=== PATIENT | male | born 1945 | race Caucasian/White ===

== ENCOUNTER 2023-02-14 15:42 | Inpatient (IN) ==
[2023-02-14] MEDS ORDERED: NovoLIN R (or HumuLIN R) SC PRN (18:19)
[2023-02-14] MEDS ORDERED: DILAUDID INJ IVP PRN (18:19)
[2023-02-14 19:07] LABS: BASOPHILS % (AUTO) 0.2 % (0.2-1.0); EOSINOPHILS % (AUTO) 0.4 % (0.9-2.9); HEMATOCRIT 37.1 % (42.0-54.0); HEMOGLOBIN 12.6 g/dL (13.5-18.0); LYMPHOCYTES # (AUTO) 1.6 X10^3/uL (1.3-2.9); LYMPHOCYTES % (AUTO) 15.1 % (21.0-51.0); MEAN CORPUSCULAR HGB CONC 33.9 g/dL (33.0-35.0); MEAN CORPUSCULAR VOLUME 82.6 fL (80.0-100.0); MEAN PLATELET VOLUME 9.1 fL (7.4-11.0); MONOCYTES # (AUTO) 0.6 x10^3/uL (0.3-0.8); MONOCYTES % (AUTO) 5.2 % (0.0-13.0); NEUTROPHILS # (AUTO) 8.4 x10^3/uL (2.2-4.8); NEUTROPHILS % (AUTO) 79.1 % (42.0-75.0); RED CELL DISTRIBUTION WIDTH 14.3 % (11.6-16.5); WHITE BLOOD COUNT 10.7 X10^3/uL (3.6-10.0)
[2023-02-14 19:10] LABS: INR 1.09 (0.8-1.3)
[2023-02-14 19:15] LABS: ALANINE AMINOTRANSFERASE 24 Units/L (12-78); ALBUMIN 3.6 g/dL (3.4-5.0); ALKALINE PHOSPHATASE 69 Units/L (46-116); ASPARTATE AMINO TRANSFERASE 13 Units/L (15-37); BLOOD UREA NITROGEN 28 mg/dL (7-18); CALCIUM 8.9 mg/dL (8.5-10.1); CARBON DIOXIDE 27.3 mmol/L (21-32); CHLORIDE 99 mmol/L (98-107); COR NA(FOR HYPERGLY) 142 mmol/L (136-145); CREATININE 1.38 mg/dL (0.70-1.30); SODIUM 135 mmol/L (136-145); eGFR NON BLACK RACES 53 (>60)
[2023-02-14 19:44] VITALS: BMI 27.1
[2023-02-14] MEDS ORDERED: LR 1,000 ML IV 1,000 ML IV ONE (20:50)
[2023-02-14] MEDS: LR 1,000 ML IV 1,000 ML IV SCH (20:59)
[2023-02-14] MEDS ORDERED: NovoLIN R (or HumuLIN R) ONE (21:35)
--- NOTE | 2023-02-14 23:22 | DR.UPDATE ---
H&P UPDATE Review Yes Any changes to H&P?: Yes
[2023-02-15] MEDS ORDERED: MOBIC TAB 15 MG PO ONE (08:08)
[2023-02-15] MEDS ORDERED: FLEXERIL TAB 10 MG ONE (08:08)
[2023-02-15] MEDS ORDERED: ASPIRIN 81 MG CHEWTAB ONE (08:08)
[2023-02-15] MEDS ORDERED: LOVENOX INJ 40 MG SYR SC ONE (08:08)
[2023-02-15] MEDS: FLEXERIL TAB 10 MG PO SCH (09:03)
[2023-02-15] MEDS: MOBIC TAB 15 MG PO SCH (09:03)
[2023-02-15] MEDS: ASPIRIN EC 81 MG PO SCH (09:04)
[2023-02-15] MEDS: LOVENOX INJ 40 MG SYR SC SCH (09:04)
[2023-02-15] MEDS: LR 1,000 ML IV 1,000 ML IV SCH ×2 (10:55→20:00)
--- NOTE | 2023-02-15 17:44 | NOTE.SOAP ---
Soap Note Note for Day of Date of Exam: 02/15/23 Subjective Data Subjective Data: Admitted with severe LE ischemia bilaterally, worse on left . HAd CTA today Objective Data Temperature: 97.6 F Pulse Rate: 89 Respiratory Rate: 20 Blood Pressure: 143/64 O2 Sat by Pulse Oximetry: 97 Objective Data: CTA of aorta with runoff shows complete total occlusion of the left distal SFA/proximal popliteal artery with 2 vessel runoff via the left AT AND PT arteries . Right SFA with short segment popliteal severe stenosis with 2 vessel runoff via right AT AND PT arteries Assessment Assessment: Severe LE ischemia, worse on left Plan Plan: Aortogram, arteriogram left leg with atherectomy and drug coated balloon angioplasty of the left SFA/Popliteal complete occlusion. Risks and benefits explained to the patient including bleeding, infection, limb loss and . She agrees to proceed. Right leg to be done at another time sequentially.
[2023-02-16 05:52] LABS: BLOOD UREA NITROGEN 20 mg/dL (7-18); CALCIUM 8.8 mg/dL (8.5-10.1); CARBON DIOXIDE 25.2 mmol/L (21-32); CHLORIDE 103 mmol/L (98-107); COR NA(FOR HYPERGLY) 140 mmol/L (136-145); CREATININE 1.05 mg/dL (0.70-1.30); SODIUM 138 mmol/L (136-145); eGFR NON BLACK RACES > 60 (>60)
--- NOTE | 2023-02-16 07:09 | RAD ---
HISTORYPreopSTUDYPortable AP chestCOMPARISONNoneFINDINGSHeart size within normal limits with clear lungs and pleural spaces.IMPRESSIONNo evidence for acute or significant chronic chest disease.Electronically signed by: YESI CAMERON (Feb 16, 2023 07:08:04)
[2023-02-16] MEDS: FLEXERIL TAB 10 MG PO SCH (08:13)
[2023-02-16] MEDS: LOVENOX INJ 40 MG SYR SC SCH (08:13)
[2023-02-16] MEDS: ASPIRIN EC 81 MG PO SCH (08:13)
[2023-02-16] MEDS: MOBIC TAB 15 MG PO SCH (08:14)
--- NOTE | 2023-02-16 08:19 | CT ---
HISTORYBILATERAL LOWER EXT ISCHEMIA.STUDYCTA AORTA WITH RUNOFFCOMPARISONNoneTECHNIQUEMultiple CT axial images of the abdomen, pelvis, and lower extremity runoff were obtained before and after using IV contrast. 3D reconstructions utilizing axial MIPS imaging was performed and reviewed. Dose reduction techniques including Automated Exposure Control (AEC) and adjustment of mA and kV were utilized.Stenoses are measured using NASCET criteria.FINDINGSWithout contrast:Atherosclerotic calcification is present in the coronary arteries. Additional calcifications are seen in aorta.Surgical clips are present in the gallbladder fossa from a cholecystectomy.With contrast: Although there are atherosclerotic changes in the aorta, there is no aortic aneurysm, dissection, or significant stenosis. All 3 mesenteric vessels are patent. One artery to the right kidney and 2 to the left.Mild stenosis is noted in the proximal right and left common iliac artery. Otherwise common and external iliac arteries are widely patent. Both internal iliac arteries are patent.Right lower extremity: Mild diffuse disease is noted. There is mild stenosis in the mid segment superficial femoral artery. Severe focal concentric stenosis noted in the vessel at the adductor segment none transitioning into the popliteal artery. Otherwise popliteal artery is patent. Moderate stenosis noted in the popliteal artery proximal to the trifurcation vessels. Anterior tibial artery is either occluded or becomes extremely tiny. Two vessel runoff exists with the dominant vessel being peroneal artery. Posterior tibial artery also extends into the foot.Left lower extremity: Mild diffuse disease is seen. But then there is occlusion of the popliteal artery just distal to the adductor canal. Collaterals reconstitute the popliteal artery above the knee joint surface. I estimate the occluded segment to measure about 5 cm in length. Moderate diffuse disease seen in the popliteal artery. And similar to the right side, the anterior tibial artery is either occluded or becomes extremely tiny. Two vessel runoff includes the peroneal artery and posterior tibial artery. The dominant vessel is the posterior tibial artery.Body: There is no biliary obstruction. No hydronephrosis. No bowel obstruction. There are diverticula in the colon. But there is no wall thickening or pericolonic edema to suggest acute diverticulitis. There is atrophy of the right abdominal wall musculature resulting in laxity and bulging of the lateral abdominal wall. And I believe there is superior right-sided lumbar hernia containing right colon. Compression fractures are present at T10 and L4 and L5. These could be acute or old.IMPRESSION1. (5 cm) short-segment left proximal popliteal artery occlusion2. Severe focal stenosis right SFA at the adductor segment3. Two vessel runoff to each foot4. Right lumbar hernia containing colon5. Thoracic and lumbar spine compression fractures, age indeterminateElectronically signed by: Mehran Bowers (Feb 16, 2023 08:17:44)
[2023-02-16] MEDS ORDERED: DIPRIVAN VIAL 20 ML ONE (08:39)
[2023-02-16] MEDS ORDERED: VERSED ONE (08:41)
[2023-02-16] MEDS ORDERED: FENTANYL VIAL INJ 100 mcg ONE (08:43)
[2023-02-16] MEDS ORDERED: ROBINUL ONE (08:46)
[2023-02-16] MEDS ORDERED: PEPCID 20 MG VIAL ONE (08:46)
[2023-02-16] MEDS ORDERED: ZOFRAN INJ 4 MG VIAL ONE (08:46)
[2023-02-16] MEDS ORDERED: NS 1,000 ML IV 1,000 ML ONE (08:58)
[2023-02-16] MEDS ORDERED: DUONEB 0.5 MG/3 MG (3 mL) NEB ONE ×2 (09:15→09:20)
[2023-02-16] MEDS ORDERED: CLEOCIN 600 MG IV PREMIX 600 MG/50 ML BAG IV ONE (09:26)
[2023-02-16] MEDS ORDERED: MARCAINE/EPINEPHRINE ONE (10:10)
[2023-02-16] MEDS ORDERED: HEPARIN SODIUM IN D5W 75,000 UNITS/1,500 ML BAG ONE (10:11)
--- NOTE | 2023-02-16 10:31 | EKG ---
Test Reason : BIG ROOM PRE-OP Blood Pressure : */* mmHG Vent. Rate : 89 BPM Atrial Rate : 89 BPM P-R Int : 152 ms QRS Dur : 94 ms QT Int : 392 ms P-R-T Axes : 75 22 88 degrees QTc Int : 476 ms Normal sinus rhythm Normal ECG No previous ECGs available Confirmed by Samy Mcmanus ([id number]) on 02/18/2023 8:20:41 AM Referred By: Confirmed By: Samy Mcmanus
[2023-02-16] MEDS ORDERED: KETAMINE HCL ONE (10:36)
[2023-02-16] MEDS ORDERED: XYLOCAINE 2 % (PLAIN) ONE (10:36)
[2023-02-16] MEDS ORDERED: PRECEDEX INJ VIAL IVP ONE (10:36)
[2023-02-16] MEDS ORDERED: HEPARIN SODIUM INJ 5000 UNITS ONE (10:41)
[2023-02-16] MEDS ORDERED: OFIRMEV IV 1000 MG VIAL 1,000 MG/100 ML VIAL IV ONE (10:50)
[2023-02-16] MEDS ORDERED: NEO-SYNEPHRINE INJ ONE (10:53)
[2023-02-16] MEDS ORDERED: REGLAN INJ 10 MG VIAL ONE (10:59)
[2023-02-16] MEDS ORDERED: DECADRON INJ ONE (10:59)
[2023-02-16] MEDS ORDERED: NS 500 ML IV 500 ML IV ONE (11:19)
[2023-02-16] MEDS ORDERED: PROTAMINE SULFATE 50 MG VIAL ONE (11:48)
--- NOTE | 2023-02-16 11:56 | OR.IMMED ---
IMMEDIATE POST-OP NOTE Immediate Post-Op Note Pre-Op Diagnosis: Critical limb ischemia left leg, rest pain Post-Op Diagnosis: same Procedure: diagnostic aortogram , diagnostic arteriogram left lower extremity , atherectomy drug-coated balloon angioplasty of the left superficial femoral artery and left popliteal artery Description of Procedure: see operative summary Surgeon/Handyman: Liset Findings: complete total occlusion of the distal left superficial femoral artery, stenosis left popliteal artery, 2 vessel runoff via the posterior tibial and peroneal arteries, occluded left anterior tibial artery Estimated Blood Loss: < 50cc Complications: none Post Hospital Plans and Medications: return to the floor. If toleratesa diet will discharged home later today Final Diagnosis: see above
--- NOTE | 2023-02-16 15:27 | W.DIS.FURT ---
Summary of Discharge Discharge Summary of Date Date of Exam: 02/16/23 Admission Date Date of Admission: 02/14/23 Admission Diagnosis Hospital Course: 77 year old female who was seen in the office on February 09 2023 for severe rest pain of both legs and bilateral dependent rubor, worse on the left. Her left 3rd toe distal phalanx has early dry gangrene . She was admitted and underwent CT angiogram the following day showing a 5 cm area of complete total occlusion of the distal left superficial femoral artery and reconstitution of the popliteal artery and 2 vessel run off by the peroneal artery and posterior tibila artery. The right side shows a very short segment severe stenosis, near total occlusion of the right superficial femoral artery. Patient underwent atherectomy and drug-coated balloon angioplasty of the right superficial femoral and popliteal arteries the next day 02/16/2023 and has done well. She will be discharged home on her usual mediations plus Aspirin, 81 mg po daily and Xarelto 2.5 mg po BID. She will follow up in one week and at that time we will schedule for the right leg intervention. Vital Signs: Vital Signs (72 hours) 02/15/23 17:44 02/14/23 18:05 02/14/23 17:45 Temperature 97.6 F 97.9 F Pulse Rate 89 Pulse Rate [Right Radial] 97 H Respiratory Rate 20 18 Blood Pressure 143/64 Blood Pressure [Left Arm] Blood Pressure [Right Arm] 175/78 O2 Sat by Pulse Oximetry 97 98 Oxygen Delivery Method Room Air Room Air 02/14/23 19:00 02/14/23 20:00 02/15/23 00:00 Temperature 98.1 F 98.2 F Pulse Rate Pulse Rate [Right Radial] 91 H 93 H Respiratory Rate 20 20 Blood Pressure Blood Pressure [Left Arm] Blood Pressure [Right Arm] 128/70 160/75 O2 Sat by Pulse Oximetry 98 99 Oxygen Delivery Method Room Air Room Air Room Air 02/15/23 04:00 02/15/23 07:00 02/15/23 08:00 Temperature 98.7 F 98.8 F Pulse Rate Pulse Rate [Right Radial] 88 86 Respiratory Rate 20 20 Blood Pressure Blood Pressure [Left Arm] Blood Pressure [Right Arm] 164/72 173/77 O2 Sat by Pulse Oximetry 97 96 Oxygen Delivery Method Room Air Room Air Room Air 02/15/23 12:00 02/15/23 16:00 02/15/23 19:00 Temperature 97.7 F 97.6 F Pulse Rate Pulse Rate [Right Radial] 89 89 Respiratory Rate 20 20 Blood Pressure Blood Pressure [Left Arm] Blood Pressure [Right Arm] 162/70 143/64 O2 Sat by Pulse Oximetry 98 97 Oxygen Delivery Method Room Air Room Air Room Air 02/15/23 20:00 02/16/23 00:00 02/16/23 04:00 Temperature 98.4 F 98 F 96.9 F L Pulse Rate Pulse Rate [Right Radial] 84 85 79 Respiratory Rate 20 20 20 Blood Pressure Blood Pressure [Left Arm] 169/72 154/69 176/79 Blood Pressure [Right Arm] O2 Sat by Pulse Oximetry 99 99 96 Oxygen Delivery Method Room Air Room Air Room Air 02/16/23 05:40 02/16/23 06:10 02/16/23 07:36 Temperature 98.6 F Pulse Rate Pulse Rate [Right Radial] 83 Respiratory Rate 20 20 18 Blood Pressure Blood Pressure [Left Arm] 142/65 Blood Pressure [Right Arm] O2 Sat by Pulse Oximetry 95 Oxygen Delivery Method Room Air 02/16/23 07:00 02/16/23 08:55 02/16/23 12:10 Temperature 97.3 F L 97.2 F L Pulse Rate 82 Pulse Rate [Right Radial] 82 Respiratory Rate 18 18 Blood Pressure 192/77 Blood Pressure [Left Arm] 126/60 Blood Pressure [Right Arm] O2 Sat by Pulse Oximetry 98 99 Oxygen Delivery Method Room Air Room Air Room Air 02/16/23 12:25 02/16/23 12:40 02/16/23 12:55 Temperature 97.9 F 97.9 F 97.9 F Pulse Rate Pulse Rate [Right Radial] 95 H 86 87 Respiratory Rate 18 18 18 Blood Pressure Blood Pressure [Left Arm] 97/47 100/54 99/52 Blood Pressure [Right Arm] O2 Sat by Pulse Oximetry 100 100 100 Oxygen Delivery Method Room Air Room Air Room Air 02/16/23 13:10 02/16/23 14:48 Temperature 97.9 F 97.7 F Pulse Rate Pulse Rate [Right Radial] 86 88 Respiratory Rate 18 20 Blood Pressure Blood Pressure [Left Arm] 98/53 136/63 Blood Pressure [Right Arm] O2 Sat by Pulse Oximetry 100 93 L Oxygen Delivery Method Room Air Room Air Labs: Laboratory Last Values WBC 10.7 X10^3/uL (3.6-10.0) H 02/14/23 18:43 RBC 4.50 X10^6/uL (4.7-6.0) L 02/14/23 18:43 Hgb 12.6 g/dL (13.5-18.0) L 02/14/23 18:43 Hct 37.1 % (42.0-54.0) L 02/14/23 18:43 MCV 82.6 fL (80.0-100.0) 02/14/23 18:43 MCH 28.0 pg (27.0-34.0) 02/14/23 18:43 MCHC 33.9 g/dL (33.0-35.0) 02/14/23 18:43 RDW 14.3 % (11.6-16.5) 02/14/23 18:43 Plt Count 232 X10^3/uL (150.0-450.0) 02/14/23 18:43 MPV 9.1 fL (7.4-11.0) 02/14/23 18:43 Neut % (Auto) 79.1 % (42.0-75.0) H 02/14/23 18:43 Lymph % (Auto) 15.1 % (21.0-51.0) L 02/14/23 18:43 [place] % (Auto) 5.2 % (0.0-13.0) 02/14/23 18:43 Eos % (Auto) 0.4 % (0.9-2.9) L 02/14/23 18:43 Baso % (Auto) 0.2 % (0.2-1.0) 02/14/23 18:43 Neut # (Auto) 8.4 x10^3/uL (2.2-4.8) H 02/14/23 18:43 Lymph # (Auto) 1.6 X10^3/uL (1.3-2.9) 02/14/23 18:43 [place] # (Auto) 0.6 x10^3/uL (0.3-0.8) 02/14/23 18:43 Eos # (Auto) 0.0 x10^3/uL (0.0-0.2) 02/14/23 18:43 Baso # (Auto) 0.0 X10^3/uL (0.0-0.1) 02/14/23 18:43 Absolute Nucleated RBC 0.0 /100WBC 02/14/23 18:43 PT 13.7 SECONDS (11.8-14.3) 02/14/23 18:43 INR Target Range - 02/14/23 18:43 INR 1.09 (0.8-1.3) 02/14/23 18:43 Sodium 138 mmol/L (136-145) 02/16/23 05:20 Corrected Sodium 140 mmol/L (136-145) 02/16/23 05:20 Potassium 4.1 mmol/L (3.5-5.1) 02/16/23 05:20 Chloride 103 mmol/L (98-107) 02/16/23 05:20 Carbon Dioxide 25.2 mmol/L (21-32) 02/16/23 05:20 BUN 20 mg/dL (7-18) H 02/16/23 05:20 Creatinine 1.05 mg/dL (0.70-1.30) 02/16/23 05:20 Est GFR (MDRD) Af Amer > 60 (>60) 02/16/23 05:20 Est GFR (MDRD) Non-Af > 60 (>60) 02/16/23 05:20 Glucose 184 mg/dL (65-99) H 02/16/23 05:20 POC Glucose (mg/dL) 179 mg/dL (65-99) H 02/16/23 05:31 Calcium 8.8 mg/dL (8.5-10.1) 02/16/23 05:20 Corrected Calcium TNP 02/14/23 18:43 Total Bilirubin 0.30 mg/dL (0.2-1.0) 02/14/23 18:43 AST 13 Units/L (15-37) L 02/14/23 18:43 ALT 24 Units/L (12-78) 02/14/23 18:43 Alkaline Phosphatase 69 Units/L (46-116) 02/14/23 18:43 Total Protein 7.0 g/dL (6.4-8.2) 02/14/23 18:43 Albumin 3.6 g/dL (3.4-5.0) 02/14/23 18:43 Globulin 3.4 g/dL (2.5-4.5) 02/14/23 18:43 Albumin/Globulin Ratio 1.1 Ratio (1.1-2.1) 02/14/23 18:43 Reason For Visit: BILATERAL LOWER EXT ISCHEMIA Discharge Date Discharge Date: 02/16/23 Discharge Diagnosis All Active Problems (Updated 02/14/23 @ 18:25 by Blake Hutchins) Atherosclerosis of [place] arteries of extremities with rest pain, left leg (Acute) Atherosclerosis of [place] arteries of extremities with rest pain, right leg (Acute) Plan of Treatment: Continue with present treatment and follow up plan. Pt is to keep follow up appointment as instructed and take medications as ordered. Discharge Medications Discharge Medications: metronidazole [From Flagyl] Allergy (Verified 02/14/23 20:34) Penicillins Allergy (Verified 02/14/23 20:34) strawberry Adverse Reaction (Verified 02/14/23 20:34) CONTINUE taking the following medications aspirin 81 mg chewable tablet 81 mg PO DAILY 02/14/23 [History] atorvastatin 20 mg tablet 1 tab PO QDAY 02/14/23 [History] ergocalciferol (vitamin D2) 1,250 mcg (50,000 unit) capsule 1 cap PO DAILY 02/14/23 [History] insulin aspart U-100 100 unit/mL (3 mL) subcutaneous pen 1 ea subcut PRN PRN 02/14/23 [History] insulin detemir U-100 100 unit/mL (3 mL) subcutaneous pen (Levemir FlexPen) 1 ea subcut PRN PRN 02/14/23 [History] levothyroxine 112 mcg tablet 1 tab PO QDAY 02/14/23 [History] lisinopril 10 mg tablet 1 tab PO QDAY 02/14/23 [History] New Prescriptions rivaroxaban 2.5 mg tablet (Xarelto) 2.5 mg PO BID #180 tabs 02/16/23 [Rx] Discharge Disposition Assessment: see hospital course above f/u 1 week Discharge Plan Discharge Plan Hospital Course: 77 year old female who was seen in the office on February 09 2023 for severe rest pain of both legs and bilateral dependent rubor, worse on the left. Her left 3rd toe distal phalanx has early dry gangrene . She was admitted and underwent CT angiogram the following day showing a 5 cm area of complete total occlusion of the distal left superficial femoral artery and reconstitution of the popliteal artery and 2 vessel run off by the peroneal artery and posterior tibila artery. The right side shows a very short segment severe stenosis, near total occlusion of the right superficial femoral artery. Patient underwent atherectomy and drug-coated balloon angioplasty of the right superficial femoral and popliteal arteries the next day 02/16/2023 and has done well. She will be discharged home on her usual mediations plus Aspirin, 81 mg po daily and Xarelto 2.5 mg po BID. She will follow up in one week and at that time we will schedule for the right leg intervention. Patient Disposition: HOME, SELF-CARE Condition: Stable Health Concerns: Post Hospitalization: new medications and changes needed to prevent readmission or further decline. Pt educated and given instructions on all concerns. Plan of Treatment: Continue with present treatment and follow up plan. Pt is to keep follow up appointment as instructed and take medications as ordered. Assessment: see hospital course above f/u 1 week Prescription drug monitoring program results: PDMP reviewed and no concerns identified Prescriptions: New Xarelto 2.5 mg tablet 2.5 mg PO BID Qty: 180 4RF Continued atorvastatin 20 mg tablet 1 tab PO QDAY lisinopril 10 mg tablet 1 tab PO QDAY ergocalciferol (vitamin D2) 1,250 mcg (50,000 unit) capsule 1 cap PO DAILY levothyroxine 112 mcg tablet 1 tab PO QDAY insulin aspart U-100 100 unit/mL (3 mL) insulin pen 1 ea SUBCUT PRN PRN Label Comments: [NO ORIGINAL SIG] Levemir FlexPen 100 unit/mL (3 mL) insulin pen 1 ea SUBCUT PRN PRN Label Comments: [NO ORIGINAL SIG] aspirin 81 mg Tablet,Chewable 81 mg PO DAILY Follow ups/Referrals Follow ups/Referrals: Janis Ty [Primary Care Provider] - 1 WEEK Instructions Stand Alone Forms: Excuse From Work or School
[2023-02-16 16:07] VITALS: BP 136/59
--- NOTE | 2023-02-20 14:57 | DR.OPNOTE ---
OP NOTE Pre-Op Diagnosis: critical ischemia left leg with rest pain Post-Op Diagnosis: same Procedure Date Date Of Procedure: 02/16/23 Procedure: PROCEDURE: Diagnostic aortogram , diagnostic arteriogram left lower extremity, atherectomy and drug coated balloon angioplasty left superficial femoral artery distally and drug coated balloon angioplasty the left popliteal artery NARRATIVE: The patient was taken to the operative suite and placed in the supine position.She was given intravenous sedation which was supervised by myself. Right groin and entire left leg were prepped and draped in sterile fashion. Time out for the procedure obtained. Ultrasound used to identify the right common femoral artery and the skin overlying it infiltrated with 0.5% Marcaine . Ultrasound used to guide puncture of the right common femoral artery artery and a 0.012 inch guide wire placed. Incision made over the guide wire at the skin edge with a number 11 knife blade and a micro sheath place over the guide wire into the right common femoral artery . . The small guidewire exchanged for a 0.035 inch Advantage glidewire and the micro sheath exchanged for a 5 Fr vascular sheath . An Omni catheter was placed over the guide wire into the aorta and diagnostic aortogram carried out using the power injector. The aorta and iliac arteries were normal. The Omni catheter used to steer the guide wire down the left iliac artery to the left distal external iliac artery. Omni catheter exchanged for a [place] catheter and sequential arteriograms carried out of the left leg showing a completely occluded distal left superficial femoral artery with reconstitution of the distal popliteal artery and two vessel run off via the left posterior tibial and peroneal arteries. The [place] catheter and the 0.035 inch wire used to traverse the complete occlusion to the [place] left popliteal artery . This was confirmed with arteriogram . The 5 Fr sheath in the right groin exchanged for a 7 Fr destination sheath which was parked in the distal external iliac artery on the left side. Patient had been given 5000 units of intravenous heparin in the beginning of the case. [place] catheter placed over the 0.035 inch wire inch and it exchanged for a 0.014 inch wire as selective catherization into the left peroneal artery. The [place] atherectomy device was loaded over the wire and atherectomy carried out with with two passes through the complete total occlusion of the superficial femoral artery. Atherectomy device removed and the distal superficial femoral artery dilated for 3 minutes with a 5 mm x 200 mm Kouts Clean TeQ [place] drug coated balloon. Excellent results noted with question of stenosis of the mid and distal left popliteal artery . Left popliteal artery then balloon dilated with a 4 mm x 60 mm mm [place] drug coated balloon with excellent result. All devices and wires removed . The destination sheath pulled back into the aorta and the 0.035 inch wire placed. The destination sheath exchange for an Angio seal device which was used to close the puncture of the right common femoral artery . Dressing applied and the patient taken back to her room on the floor. She tolerated this well. Type of Anesthesia: Local (0.5% Marcaine ) Anesthesia Comment: plus MAC Findings: complete total occlusion left distal superficial femoral artery, sten osis left popliteal artery, run off left leg via left posterior tibial and left peroneal arteries . Type of Fluids Used:: Lactated Ringers Total Amount of Fluid Infused:: 500 cc Urine output: 50 cc EBL: 50 cc Complications:: one Needle/Sponge Count:: correct Disposition/Condition: Pt. tolerated procedure without difficulty. Extubated in the OR and taken to PACU in stable condition.
== END 2023-02-16 16:50 | disposition home or self-care (01) | DRG 272 ==
LOC: EDSEX 17:18 → MED/SURG 17:18
PROVIDERS: ADMIT Surgery; ATTEND Surgery
DX: Z66 Do not resuscitate; I70.223 Atherosclerosis of native arteries of extremities with rest pain, bilateral legs; E78.2 Mixed hyperlipidemia; E11.65 Type 2 diabetes mellitus with hyperglycemia; I10 Essential (primary) hypertension

== ENCOUNTER 2023-02-27 06:18 | Inpatient (IN) ==
[2023-02-27] MEDS ORDERED: ANCEF VIAL 1 GRAM ONE (06:54)
[2023-02-27] MEDS ORDERED: NS 100 ML IV 100 ML ONE (06:54)
[2023-02-27] MEDS ORDERED: NS 1,000 ML IV 1,000 ML ONE ×3 (06:54→14:14)
[2023-02-27] MEDS ORDERED: HEPARIN SODIUM IN D5W 75,000 UNITS/1,500 ML BAG ONE ×2 (07:11→14:05)
[2023-02-27] MEDS ORDERED: MARCAINE 0.25% INJ ONE ×2 (07:11→14:06)
[2023-02-27] MEDS ORDERED: CLEOCIN 600 MG IV PREMIX 600 MG/50 ML BAG IV ONE (07:12)
[2023-02-27] MEDS ORDERED: KETAMINE HCL ONE (07:35)
[2023-02-27] MEDS ORDERED: DIPRIVAN VIAL 40 ML ONE (07:42)
[2023-02-27] MEDS ORDERED: FENTANYL VIAL INJ 100 mcg ONE (07:42)
[2023-02-27] MEDS ORDERED: VERSED ONE (07:42)
[2023-02-27] MEDS ORDERED: HEPARIN SODIUM INJ 5000 UNITS ONE ×2 (08:27→15:38)
[2023-02-27] MEDS ORDERED: NS 500 ML IV 500 ML IV ONE (08:55)
[2023-02-27] MEDS ORDERED: TORADOL 30 MG VIAL ONE (09:11)
[2023-02-27] MEDS ORDERED: NEO-SYNEPHRINE INJ ONE (09:23)
[2023-02-27] MEDS ORDERED: HEPARIN SODIUM IN D5W 25,000 UNITS/500 ML BAG ONE (09:34)
[2023-02-27] MEDS ORDERED: ACTIVASE CATHFLO ONE (09:35)
[2023-02-27] MEDS ORDERED: NITROGLYCERIN IV PREMIX 50 MG 50 MG/250 ML BAG ONE (09:51)
[2023-02-27] MEDS ORDERED: ACTIVASE CATHFLO 12 MG in NS 250 ML IV 228 ML IV ONE (10:00)
[2023-02-27] MEDS ORDERED: DIPRIVAN VIAL 20 ML ONE ×2 (10:02→13:57)
[2023-02-27] MEDS ORDERED: DILAUDID INJ ONE ×3 (10:32→12:42)
[2023-02-27] MEDS ORDERED: BARHEMSYS INJ IVP PRN (10:34)
[2023-02-27] MEDS ORDERED: ZOFRAN INJ 4 MG VIAL IVP PRN ×2 (10:34→17:09)
[2023-02-27] MEDS ORDERED: REGLAN INJ 10 MG VIAL IVP PRN (10:34)
[2023-02-27] MEDS ORDERED: BENADRYL INJ 50 MG VIAL IVP PRN (10:34)
[2023-02-27] MEDS: DILAUDID INJ IVP PRN ×5 (10:49→17:47)
--- NOTE | 2023-02-27 10:55 | OR.IMMED ---
IMMEDIATE POST-OP NOTE Immediate Post-Op Note Pre-Op Diagnosis: Critical ischemia right leg . Post-Op Diagnosis: same Description of Procedure: diagnostic aortogram, diagnostic arteriogram right leg, atherectomy and balloon angiioplasty right posterior tibial artery, atherectomy and drug coated balloon angioplasty right superficial femoral artery, placement of EKOS catheter down the right posterior tibial artery for 4 hour infusion of TPA and then will return to OR later today for repeat arteriogram and possible more peripheral based intervention. Surgeon/Beam Press Operator: Liset Findings: Right SFA near total occlusion, obstruction and complete occlusion right tibial -peroneal trunk, entire right posterior tibial artery, and occlusion proximal right peroneal artery. Possible thrombus as none of the distal occlusions noted on the CTA except for the completely occluded right anterior tibial artery. Complications: none Progress Notes: to PACU for 4 hrs TPA infusion right leg and at that time return to OR for repeat arteriogram and possibly further intervention.
[2023-02-27] MEDS ORDERED: BARHEMSYS INJ ONE (12:21)
[2023-02-27] MEDS ORDERED: DILAUDID INJ IVP ONE (12:45)
[2023-02-27] MEDS ORDERED: NORMODYNE INJ 20 MG VIAL ONE (15:14)
[2023-02-27] MEDS ORDERED: HEPARIN SODIUM IN D5W 25,000 UNITS/500 ML BAG IV PRN (17:09)
--- NOTE | 2023-02-27 17:20 | OR.IMMED ---
IMMEDIATE POST-OP NOTE Immediate Post-Op Note Pre-Op Diagnosis: Critical ischemia right leg Post-Op Diagnosis: same Procedure: arteriogram right leg, angioplasty right posterior tibial artery, attempt to cross takeoff of right peroneal artery not successful Surgeon/Information Systems Manager: Liset Findings: Question of extravasation of proximal posterior tibial artery on right, extravasation of proximal right peroneal after attempt to pass wire across this occlusion Estimated Blood Loss: minimal Complications: as above Progress Notes: Leave sheath in place, heparin drip. Will plan return to OR tomorrow with repeat arteriogram and if still extravasation will plan for possible covered stent placement.
[2023-02-27] MEDS: ATIVAN INJ 2 MG VIAL IVP PRN (17:48)
[2023-02-27] MEDS: LR 1,000 ML IV 1,000 ML IV SCH ×2 (18:34→23:32)
[2023-02-28] MEDS: DILAUDID INJ IVP PRN ×5 (00:49→18:31)
[2023-02-28 02:21] LABS: BASOPHILS % (AUTO) 0.3 % (0.2-1.0); EOSINOPHILS # (AUTO) 0.1 x10^3/uL (0.0-0.2); EOSINOPHILS % (AUTO) 0.6 % (0.9-2.9); HEMATOCRIT 30.2 % (36.0-47.0); HEMOGLOBIN 10.2 g/dL (12.0-16.0); LYMPHOCYTES # (AUTO) 1.8 X10^3/uL (1.3-2.9); LYMPHOCYTES % (AUTO) 13.1 % (21.0-51.0); MEAN CORPUSCULAR HEMOGLOBIN 27.8 pg (27.0-34.0); MEAN CORPUSCULAR HGB CONC 33.7 g/dL (33.0-35.0); MEAN CORPUSCULAR VOLUME 82.5 fL (80.0-100.0); MEAN PLATELET VOLUME 8.6 fL (7.4-11.0); MONOCYTES # (AUTO) 0.6 x10^3/uL (0.3-0.8); MONOCYTES % (AUTO) 4.8 % (0.0-13.0); NEUTROPHILS # (AUTO) 10.9 x10^3/uL (2.2-4.8); NEUTROPHILS % (AUTO) 81.2 % (42.0-75.0); RED BLOOD COUNT 3.66 X10^6/uL (3.5-5.4); RED CELL DISTRIBUTION WIDTH 14.2 % (11.6-16.5); WHITE BLOOD COUNT 13.4 X10^3/uL (3.6-10.0)
[2023-02-28 02:24] LABS: CALCIUM 8.2 mg/dL (8.5-10.1); CARBON DIOXIDE 28.7 mmol/L (21-32); CREATININE 1.25 mg/dL (0.55-1.02)
[2023-02-28] MEDS ORDERED: HEPARIN SODIUM INJ 5000 UNITS IVP ONE ×2 (02:39→09:38)
[2023-02-28] MEDS ORDERED: HEPARIN SODIUM INJ 5000 UNITS ONE ×2 (02:43→17:13)
[2023-02-28] MEDS: ASPIRIN EC 81 MG PO SCH (09:23)
[2023-02-28] MEDS: LR 1,000 ML IV 1,000 ML IV SCH ×2 (13:19→23:56)
[2023-02-28] MEDS ORDERED: DIPRIVAN VIAL 20 ML ONE ×2 (13:25→17:16)
[2023-02-28] MEDS ORDERED: NS 100 ML IV 100 ML ONE ×2 (14:51→22:03)
[2023-02-28] MEDS ORDERED: LR 1,000 ML IV 1,000 ML IV ONE (14:51)
[2023-02-28] MEDS ORDERED: ANCEF VIAL 1 GRAM ONE (14:51)
[2023-02-28] MEDS ORDERED: MARCAINE/EPINEPHRINE ONE (14:52)
[2023-02-28] MEDS ORDERED: HEPARIN SODIUM IN D5W 50,000 UNITS/1,000 ML BAG ONE (14:52)
[2023-02-28] MEDS ORDERED: NORMODYNE INJ 20 MG VIAL ONE (15:02)
[2023-02-28] MEDS ORDERED: FENTANYL VIAL INJ 100 mcg ONE (16:15)
[2023-02-28] MEDS ORDERED: KETAMINE HCL ONE (17:37)
[2023-02-28] MEDS: ATIVAN INJ 2 MG VIAL IVP PRN (18:28)
--- NOTE | 2023-02-28 18:57 | OR.IMMED ---
IMMEDIATE POST-OP NOTE Immediate Post-Op Note Date of surgery/procedure: 02/28/23 Pre-Op Diagnosis: Critical ischemia right leg Post-Op Diagnosis: same Procedure: arteriogram right leg, peripheral access right posterior tibial artery angioplasty and covered stent placement proximal right posterior tibial artery Description of Procedure: see operative summary Surgeon/Business Analyst Project Manager: Liset Findings: had atherectomy and drug coated balloon angioplasty right SFA and atherectomy right tib-peroneal trunk with possible flap vs dissection , minor extravasation of proximal right posterior tibial artery. Estimated Blood Loss: 100 cc Complications: none Progress Notes: Return to ICU . Begin po Xarelto, diet, hopefully home in AM Final Diagnosis: as above
--- NOTE | 2023-02-28 21:29 | EKG ---
Test Reason : HR 170 Blood Pressure : */* mmHG Vent. Rate : 160 BPM Atrial Rate : * BPM P-R Int : * ms QRS Dur : 84 ms QT Int : 296 ms P-R-T Axes : * 32 149 degrees QTc Int : 482 ms Atrial fibrillation with rapid ventricular response Low voltage QRS Nonspecific ST and T wave abnormality Abnormal ECG When compared with ECG of 16-FEB-2023 10:29, Atrial fibrillation has replaced Sinus rhythm Vent. rate has increased BY 71 BPM Nonspecific T wave abnormality now evident in Inferior leads T wave inversion now evident in Lateral leads Confirmed by Samy Mcmanus ([id number]) on 03/03/2023 10:30:56 AM Referred By: Confirmed By: Samy Mcmanus
[2023-02-28] MEDS ORDERED: CARDIZEM INJ 50 MG VIAL IVP ONE ×2 (21:31→21:58)
[2023-02-28] MEDS ORDERED: CARDIZEM INJ 50 MG VIAL ONE (21:34)
[2023-02-28] MEDS ORDERED: XARELTO PO ONE (21:34)
[2023-02-28] MEDS ORDERED: CARDENE IV PREMIX* 40 MG/200 ML 40 MG/200 ML PIGGYBACK IV PRN (21:59)
[2023-02-28] MEDS ORDERED: CARDIZEM INJ 125 MG VIAL ONE (22:03)
[2023-02-28] MEDS: CARDIZEM INJ 125 MG VIAL 125 MG in NS 100 ML IV 100 ML IV PRN (22:15)
[2023-02-28] MEDS ORDERED: NORMODYNE INJ 20 MG VIAL IVP ONE (23:15)
[2023-02-28] MEDS: XARELTO PO SCH (23:57)
--- NOTE | 2023-03-01 00:22 | NOTE.SOAP ---
Soap Note Note for Day of Date of Exam: 02/28/23 Subjective Data Subjective Data: See surgical notes of the last 2 days . s/p atherectomy and drug coated balloon angioplasty right superficial femoral artery, atherectomy and angioplasty right posterior tibial artery, EKOS thrombolysis of clot of the right tibial-peroneal trunk, and today stenting of the right posterior tibial artery with a covered stent. In ICU and has acute onset of atrial fibrillation with rapid ventricular response. Given bolus of diltazem with diltiazem drip with no response. Started on Beta estephanie . Good BP and oxygen saturation Objective Data Temperature: 98.3 F Pulse Rate: 156 Respiratory Rate: 21 Blood Pressure: 140/63 O2 Sat by Pulse Oximetry: 99 Objective Data: Resting comfortably with RVR and a-fib. Right foot is now warm with biphasic doppler signal of the right posterior tibial artery. Assessment Assessment: 1) Ischemic right foot, now resolved 2) New onset of atrial fibrillation. Plan Plan: Started diltiazem drip, Begin labetalol IV, Cardiology consult in AM .BNP in AM , cardiac enzymes
[2023-03-01] MEDS: DILAUDID INJ IVP PRN ×4 (00:57→22:46)
[2023-03-01] MEDS: ATIVAN TAB 0.5 MG PO PRN (02:59)
[2023-03-01] MEDS: CARDIZEM INJ 125 MG VIAL 125 MG in NS 100 ML IV 100 ML IV PRN (03:32)
[2023-03-01] MEDS ORDERED: DILAUDID INJ IVP ONE (04:05)
[2023-03-01 04:58] LABS: BASOPHILS % (AUTO) 0.3 % (0.2-1.0); EOSINOPHILS # (AUTO) 0.1 x10^3/uL (0.0-0.2); EOSINOPHILS % (AUTO) 0.8 % (0.9-2.9); HEMATOCRIT 26.6 % (36.0-47.0); HEMOGLOBIN 9.1 g/dL (12.0-16.0); LYMPHOCYTES # (AUTO) 1.4 X10^3/uL (1.3-2.9); LYMPHOCYTES % (AUTO) 10.3 % (21.0-51.0); MEAN CORPUSCULAR HEMOGLOBIN 27.9 pg (27.0-34.0); MEAN CORPUSCULAR HGB CONC 34.1 g/dL (33.0-35.0); MEAN PLATELET VOLUME 8.9 fL (7.4-11.0); MONOCYTES # (AUTO) 0.8 x10^3/uL (0.3-0.8); MONOCYTES % (AUTO) 6.1 % (0.0-13.0); NEUTROPHILS # (AUTO) 11.1 x10^3/uL (2.2-4.8); NEUTROPHILS % (AUTO) 82.5 % (42.0-75.0); RED BLOOD COUNT 3.25 X10^6/uL (3.5-5.4); RED CELL DISTRIBUTION WIDTH 13.9 % (11.6-16.5); WHITE BLOOD COUNT 13.5 X10^3/uL (3.6-10.0)
[2023-03-01 05:04] LABS: CALCIUM 8.3 mg/dL (8.5-10.1); CARBON DIOXIDE 24.6 mmol/L (21-32); CREATININE 1.18 mg/dL (0.55-1.02)
[2023-03-01] MEDS ORDERED: SYNTHROID 112 mcg TAB ONE (05:14)
--- NOTE | 2023-03-01 08:52 | RAD ---
HISTORYCRITICAL ISCHEMIA RIGHT LEG, NEW ONSET ATRIAL FIBRILATION Relevant Clinical InformationSTUDYCHEST, 1 [id number]/2023FINDINGSTrachea is midline. There is moderate cardiomegaly. Since prior study, there is patchy bibasal radiopacities with perihilar radiopacities and central mild pulmonary edema. There is also and small right pleural effusionNo pneumothorax.IMPRESSIONMild interstitial and central pulmonary edema. Small right pleural effusion.Electronically signed by: Venessa Sorto (Mar 01, 2023 08:51:43)
[2023-03-01] MEDS ORDERED: LANOXIN INJ IVP ONE ×3 (09:12→11:37)
[2023-03-01] MEDS ORDERED: ELIQUIS PO SCH (09:15)
[2023-03-01] MEDS: XARELTO PO SCH (09:41)
[2023-03-01] MEDS: ZESTRIL TAB 10 MG PO SCH (09:42)
[2023-03-01] MEDS: ASPIRIN EC 81 MG PO SCH (09:42)
[2023-03-01] MEDS: LIPITOR TAB 20 MG PO SCH (09:42)
[2023-03-01] MEDS: NS 1,000 ML IV 1,000 ML IV SCH (09:56)
[2023-03-01] MEDS ORDERED: CARDIZEM TAB 30 MG PLAIN PO SCH (10:00)
[2023-03-01] MEDS: CARDIZEM TAB 30 MG PLAIN PO SCH ×3 (10:15→21:04)
[2023-03-01] MEDS: XOPENEX 1.25 MG/3 ML NEBULE NEB SCH ×3 (13:12→20:19)
[2023-03-01] MEDS ORDERED: PULMICORT NEB TX 0.5 MG NEB ONE (19:12)
[2023-03-01 19:21] LABS: INR 1.32 (0.8-1.3)
[2023-03-01] MEDS ORDERED: HEPARIN SODIUM INJ 5000 UNITS IVP ONE (19:40)
--- NOTE | 2023-03-01 20:09 | DR.UPDATE ---
H&P Update Prescription drug monitoring program results: PDMP was not reviewed H&P Reviewed: Yes Any changes to H&P?: No Patient was examined?: Yes Procedures (ALL) - Central Line Placement PCM.CLCO: written consent Time out performed: Yes Patient placed pm monitor/pulse ox: Yes MD prep: mask, gown, gloves, other Centrial line prep: chlorhexidine scrub, sterile drapes applied Local anesthsia used: lidocane 1% Ultrasound used for placement: Yes (cannulation of right IJ visualized with u/s) Central line lumen ininserted: triple Post procedure: sutured in place, good blood return, all ports aspirated, flushed,capped, sterile dressing applied Post procedure xray: tip oc catheter in good position (appears svc), no pneumothorax seen Patient tolerated procedure: Yes Complications: none
[2023-03-01] MEDS: HEPARIN SODIUM IN D5W 25,000 UNITS/500 ML BAG IV PRN (20:10)
[2023-03-01] MEDS: SYNTHROID 112 mcg TAB PO SCH (20:12)
--- NOTE | 2023-03-01 20:12 | RAD ---
EXAM: CHEST X-RAYHISTORY: Central line placement verification.TECHNIQUE: AP CXR dated March 01, 2023 at 7:53 PM.COMPARISON: CXR dated March 01, 2023 at 4:43 AM.FINDINGS:Interval appearance of the right internal jugular central venous catheter with distal tip in the distal SVC (adequate position). Recommend careful clinical correlation to ensure venous blood return.There is evidence for borderline cardiomegaly. The pulmonary vascularity and interstitial markings are mildly prominent, in keeping with minimal CHF or volume overload in the appropriate clinical setting; differential diagnosis includes (but is not limited to) mild bronchitis and interstitial pneumonia in the appropriate clinical setting.There is no gross focal lung consolidation, pleural effusion, or pneumothorax seen. The visualized bony structures are within normal limits.IMPRESSION:1. Interval appearance of the right internal jugular central venous catheter with distal tip in the distal SVC (adequate position). Recommend careful clinical correlation to ensure venous blood return.2. Findings in keeping with minimal CHF or volume overload in the appropriate clinical setting (significantly improved appearance of pulmonary prominence compared with earlier exam); DDX includes (but is not limited to) mild bronchitis and interstitial pneumonia in the appropriate clinical setting.3. Recommend clinical correlation and appropriate follow-up CXR evaluation to ensure interval clearance as clinically warranted.Electronically signed by: Jalen Rolle (Mar 01, 2023 20:10:53)
[2023-03-01] MEDS: PULMICORT NEB TX 0.5 MG NEB SCH (20:19)
--- NOTE | 2023-03-01 22:24 | NOTE.SOAP ---
Soap Note Note for Day of Date of Exam: 03/01/23 Subjective Data Subjective Data: Patient had stenting of the right posterior tibial artery.Last night she had warm right foot with biphasic doppler signal of the right posterior tibial artery. Last night had onset of atrial fibrillation with RVR ,treated with IV Diltiazem and IV Labetolol .Seen by Cardiology and started on po Cardiazem and po Digoxin and heart rate slowed to less than 100 still in atrial fibrillation. This AM the right foot was warm. This PM the right foot was cool with no PT doppler signal.Had also been started on PO Eliquis . Objective Data Temperature: 97.4 F Pulse Rate: 109 Respiratory Rate: 14 Blood Pressure: 123/53 O2 Sat by Pulse Oximetry: 97 Objective Data: As above with cool right foot. Hgb=9.1, Cr=1.18, WBC=13.5 Assessment Assessment: Right leg arteries/ stent occluded/ thrombosed. Plan Plan: Begin Heparin drip and to OR in AM for arteriogram right leg, possible thrombolysis , possible angioplasty to re-establish arterial flow to right leg. I discussed the real risks of limb loss with this patient and her and discussed if they want to be transferred. They want me to deal with this problem .
[2023-03-02] MEDS: ATIVAN TAB 0.5 MG PO PRN ×2 (00:27→19:45)
[2023-03-02] MEDS: NS 1,000 ML IV 1,000 ML IV SCH ×2 (03:15→18:40)
[2023-03-02] MEDS: DILAUDID INJ IVP PRN ×4 (03:16→19:46)
[2023-03-02] MEDS: CARDIZEM TAB 30 MG PLAIN PO SCH ×3 (05:10→21:02)
[2023-03-02] MEDS: SYNTHROID 112 mcg TAB PO SCH (06:09)
[2023-03-02] MEDS ORDERED: ANCEF VIAL 1 GRAM ONE (07:14)
[2023-03-02] MEDS ORDERED: NS 1,000 ML IV 1,000 ML ONE ×2 (07:14→23:36)
[2023-03-02] MEDS ORDERED: CLEOCIN 600 MG IV PREMIX 600 MG/50 ML BAG IV ONE ×2 (07:26→23:43)
[2023-03-02] MEDS ORDERED: VERSED ONE ×2 (07:56→23:52)
[2023-03-02] MEDS ORDERED: FENTANYL VIAL INJ 100 mcg ONE ×2 (07:56→23:52)
[2023-03-02] MEDS ORDERED: DIPRIVAN VIAL 40 ML ONE (07:57)
[2023-03-02] MEDS: ASPIRIN EC 81 MG PO SCH (08:04)
[2023-03-02] MEDS: LIPITOR TAB 20 MG PO SCH (08:06)
[2023-03-02] MEDS ORDERED: NEO-SYNEPHRINE INJ ONE (08:26)
[2023-03-02] MEDS ORDERED: HEPARIN SODIUM INJ 5000 UNITS ONE (08:34)
[2023-03-02] MEDS ORDERED: ACTIVASE CATHFLO ONE (08:40)
[2023-03-02] MEDS ORDERED: HEPARIN SODIUM IN D5W 25,000 UNITS/500 ML BAG ONE ×2 (08:52→09:44)
[2023-03-02] MEDS ORDERED: TORADOL 30 MG VIAL ONE (09:02)
[2023-03-02] MEDS: PULMICORT NEB TX 0.5 MG NEB SCH ×2 (09:19→21:00)
[2023-03-02] MEDS: XOPENEX 1.25 MG/3 ML NEBULE NEB SCH ×4 (09:19→21:00)
[2023-03-02] MEDS ORDERED: NS 500 ML IV 500 ML IV ONE ×2 (09:44→12:12)
[2023-03-02] MEDS: ACTIVASE CATHFLO 12 MG in NS 250 ML IV 228 ML IV SCH (10:00)
[2023-03-02] MEDS ORDERED: MARCAINE/EPINEPHRINE ONE ×2 (10:33→23:42)
[2023-03-02] MEDS ORDERED: ATIVAN INJ 2 MG VIAL ONE (11:02)
[2023-03-02] MEDS: ATIVAN INJ 2 MG VIAL IVP PRN (11:05)
[2023-03-02 12:43] LABS: BASOPHILS % (AUTO) 0.3 % (0.2-1.0); EOSINOPHILS # (AUTO) 0.2 x10^3/uL (0.0-0.2); EOSINOPHILS % (AUTO) 1.3 % (0.9-2.9); HEMOGLOBIN 7.5 g/dL (12.0-16.0); LYMPHOCYTES # (AUTO) 0.7 X10^3/uL (1.3-2.9); LYMPHOCYTES % (AUTO) 5.5 % (21.0-51.0); MEAN CORPUSCULAR HEMOGLOBIN 28.1 pg (27.0-34.0); MEAN CORPUSCULAR HGB CONC 34.3 g/dL (33.0-35.0); MEAN CORPUSCULAR VOLUME 81.9 fL (80.0-100.0); MEAN PLATELET VOLUME 8.7 fL (7.4-11.0); MONOCYTES # (AUTO) 0.7 x10^3/uL (0.3-0.8); MONOCYTES % (AUTO) 6.2 % (0.0-13.0); NEUTROPHILS # (AUTO) 10.4 x10^3/uL (2.2-4.8); NEUTROPHILS % (AUTO) 86.7 % (42.0-75.0); RED BLOOD COUNT 2.68 X10^6/uL (3.5-5.4); WHITE BLOOD COUNT 11.9 X10^3/uL (3.6-10.0)
--- NOTE | 2023-03-02 14:26 | OR.IMMED ---
IMMEDIATE POST-OP NOTE Immediate Post-Op Note Pre-Op Diagnosis: see previous notes , ischemic right leg Post-Op Diagnosis: same Procedure: arteriogram right leg, Angiojet thrombectomy right SFA, popliteal tib -peroneal trunk and right posterior tibial artery, angioplasty all arteries of right leg, place EKOS thrombolytic catheter in distal right PT artery extending infusion zone through the right covered stent for 24 hr TPA infusion Description of Procedure: see operative summary Surgeon/Food And Beverage Order Clerk: Liset Findings: Thrombosis of entire right SFA, right popliteal and right tib-peroneal trunk with intact stent right PT artery and non- occlusive clot right distal posterior tibial artery Estimated Blood Loss: 50 cc Complications: none Progress Notes: to ICU for overnight TPA infusion and routine labs
[2023-03-02] MEDS: ZESTRIL TAB 10 MG PO SCH (15:27)
[2023-03-02] MEDS ORDERED: LANOXIN INJ IVP ONE (17:45)
[2023-03-02] MEDS ORDERED: LANOXIN INJ ONE (17:52)
[2023-03-02] MEDS: HEPARIN SODIUM IN D5W 25,000 UNITS/500 ML BAG IV PRN (18:28)
[2023-03-02] MEDS ORDERED: NS 250 ML IV 250 ML IV ONE (21:11)
[2023-03-02] MEDS ORDERED: HEPARIN SODIUM INJ 5000 UNITS IVP ONE (22:31)
[2023-03-02] MEDS ORDERED: DILAUDID INJ IVP ONE (23:07)
[2023-03-02] MEDS ORDERED: DIPRIVAN VIAL 20 ML ONE (23:53)
[2023-03-03] MEDS: ACTIVASE CATHFLO 12 MG in NS 250 ML IV 228 ML IV SCH (00:07)
--- NOTE | 2023-03-03 00:30 | OR.IMMED ---
IMMEDIATE POST-OP NOTE Immediate Post-Op Note Pre-Op Diagnosis: right calf compartment syndrome Post-Op Diagnosis: same Procedure: 4 compartment fasciotomy right calf Description of Procedure: see operative note Surgeon/Dye Range Feeder: Liset Findings: Since this afternoon after returning to the ICU she has had increasing pain of right calf and tense calf muscles right calf . Bulging of viable muscle after fasiotomy. Estimated Blood Loss: minimal Complications: none Progress Notes: Return to ICU , Continue TPA thrombolysis and heparin drip.
[2023-03-03] MEDS ORDERED: NS 250 ML IV 250 ML IV PRN (00:44)
[2023-03-03 01:45] LABS: HEMATOCRIT 23.3 % (36.0-47.0)
[2023-03-03] MEDS: DILAUDID INJ IVP PRN ×3 (01:50→20:00)
[2023-03-03] MEDS: ATIVAN INJ 2 MG VIAL IVP PRN (02:47)
[2023-03-03] MEDS ORDERED: NS 500 ML IV 500 ML IV ONE ×2 (02:58→08:48)
[2023-03-03] MEDS: NS 1,000 ML IV 1,000 ML IV SCH ×3 (03:57→18:10)
[2023-03-03 05:26] LABS: BASOPHILS % (AUTO) 0.2 % (0.2-1.0); EOSINOPHILS # (AUTO) 0.2 x10^3/uL (0.0-0.2); HEMATOCRIT 21.8 % (36.0-47.0); HEMOGLOBIN 7.4 g/dL (12.0-16.0); LYMPHOCYTES % (AUTO) 6.7 % (21.0-51.0); MEAN CORPUSCULAR HEMOGLOBIN 28.3 pg (27.0-34.0); MEAN CORPUSCULAR HGB CONC 34.1 g/dL (33.0-35.0); MEAN CORPUSCULAR VOLUME 82.9 fL (80.0-100.0); MEAN PLATELET VOLUME 9.6 fL (7.4-11.0); MONOCYTES # (AUTO) 0.8 x10^3/uL (0.3-0.8); MONOCYTES % (AUTO) 5.6 % (0.0-13.0); NEUTROPHILS # (AUTO) 12.9 x10^3/uL (2.2-4.8); NEUTROPHILS % (AUTO) 86.5 % (42.0-75.0); RED BLOOD COUNT 2.63 X10^6/uL (3.5-5.4); RED CELL DISTRIBUTION WIDTH 14.1 % (11.6-16.5)
[2023-03-03 05:36] LABS: BLOOD UREA NITROGEN 18 mg/dL (7-18); CALCIUM 7.8 mg/dL (8.5-10.1); CARBON DIOXIDE 24.5 mmol/L (21-32); CHLORIDE 107 mmol/L (98-107); COR NA(FOR HYPERGLY) 142 mmol/L (136-145); CREATININE 1.05 mg/dL (0.55-1.02); SODIUM 139 mmol/L (136-145); eGFR NON BLACK RACES 54 (>60)
[2023-03-03] MEDS: CARDIZEM TAB 30 MG PLAIN PO SCH ×3 (06:18→21:50)
[2023-03-03] MEDS: SYNTHROID 112 mcg TAB PO SCH (06:18)
[2023-03-03] MEDS ORDERED: NS 250 ML IV 250 ML IV ONE (06:29)
[2023-03-03] MEDS: PULMICORT NEB TX 0.5 MG NEB SCH ×2 (08:09→21:00)
[2023-03-03] MEDS: XOPENEX 1.25 MG/3 ML NEBULE NEB SCH ×4 (08:09→21:00)
[2023-03-03] MEDS ORDERED: DOPAMINE IV PREMIX 400 MG/250 ML 400 MG/250 ML BAG IV ONE ×2 (08:31→08:50)
[2023-03-03] MEDS ORDERED: CARDIZEM INJ 125 MG VIAL 125 MG in NS 100 ML IV 100 ML IV PRN (08:45)
[2023-03-03] MEDS ORDERED: CARDIZEM INJ 50 MG VIAL IVP ONE (08:47)
[2023-03-03] MEDS ORDERED: CARDIZEM INJ 50 MG VIAL ONE (09:21)
[2023-03-03] MEDS ORDERED: LABETALOL HCL IVP ONE (09:28)
[2023-03-03] MEDS ORDERED: DOPAMINE IV PREMIX 400 MG/250 ML 400 MG/250 ML BAG IV PRN (10:13)
[2023-03-03] MEDS ORDERED: LEVOPHED 8 MG/250 ML IV *PREMIX 8 MG/250 ML PLAST..BAG IV PRN (10:43)
[2023-03-03] MEDS ORDERED: LEVOPHED 8 MG/250 ML IV *PREMIX 8 MG/250 ML PLAST..BAG IV ONE (10:44)
[2023-03-03] MEDS ORDERED: ACTIVASE CATHFLO 12 MG in NS 250 ML IV 228 ML IV ONE (11:00)
[2023-03-03] MEDS: ASPIRIN EC 81 MG PO SCH (11:04)
[2023-03-03] MEDS: ZESTRIL TAB 10 MG PO SCH (11:04)
[2023-03-03] MEDS: NS 500 ML IV 500 ML IV PRN ×2 (11:05→21:51)
[2023-03-03] MEDS: LIPITOR TAB 20 MG PO SCH (11:06)
--- NOTE | 2023-03-03 11:12 | RAD ---
HISTORYSHORTNESS OF BREATH Relevant Clinical InformationSTUDYCHEST, 1 [id number] trachea is midline. Right IJ central line unchanged with tip in the distal SVC. The cardiac silhouette is stable. The lungs are clear without focal infiltrate or effusion. The bony thorax is unremarkable.IMPRESSIONNo acute cardiopulmonary findings .Electronically signed by: Patrick Leyva (Mar 03, 2023 11:11:29)
[2023-03-03 11:57] LABS: HEMOGLOBIN 10.5 g/dL (12.0-16.0)
[2023-03-03 12:02] LABS: HEMATOCRIT 31.2 % (36.0-47.0)
[2023-03-03 14:22] LABS: ALBUMIN 2.1 g/dL (3.4-5.0); CALCIUM 7.1 mg/dL (8.5-10.1); CARBON DIOXIDE 19.5 mmol/L (21-32); COR CA(FOR HYPOALB) 8.6 mg/dL (8.5-10.1); CREATININE 1.51 mg/dL (0.55-1.02); TOTAL PROTEIN 4.6 g/dL (6.4-8.2)
[2023-03-03 14:31] LABS: BASOPHILS # (AUTO) 0.1 X10^3/uL (0.0-0.1); BASOPHILS % (AUTO) 0.2 % (0.2-1.0); EOSINOPHILS % (AUTO) 0.1 % (0.9-2.9); HEMATOCRIT 28.6 % (36.0-47.0); HEMOGLOBIN 9.7 g/dL (12.0-16.0); LYMPHOCYTES # (AUTO) 1.3 X10^3/uL (1.3-2.9); LYMPHOCYTES % (AUTO) 5.9 % (21.0-51.0); MEAN CORPUSCULAR HEMOGLOBIN 28.4 pg (27.0-34.0); MEAN CORPUSCULAR VOLUME 83.3 fL (80.0-100.0); MEAN PLATELET VOLUME 9.4 fL (7.4-11.0); MONOCYTES # (AUTO) 1.6 x10^3/uL (0.3-0.8); MONOCYTES % (AUTO) 7.2 % (0.0-13.0); NEUTROPHILS # (AUTO) 19.3 x10^3/uL (2.2-4.8); NEUTROPHILS % (AUTO) 86.6 % (42.0-75.0); RED BLOOD COUNT 3.43 X10^6/uL (3.5-5.4); WHITE BLOOD COUNT 22.3 X10^3/uL (3.6-10.0)
[2023-03-03 15:01] LABS: BAND NEUTROPHILS % 3 % (0-10); PLATELET MORPHOLOGY COMMENT NORMAL (NORMAL)
[2023-03-03] MEDS: DOPAMINE IV PREMIX 400 MG/250 ML 400 MG/250 ML BAG IV PRN (15:37)
[2023-03-03] MEDS: NovoLIN R (or HumuLIN R) SC PRN ×2 (16:44→21:50)
[2023-03-03 19:06] LABS: HEMOGLOBIN 8.9 g/dL (12.0-16.0); RED BLOOD COUNT 3.12 X10^6/uL (3.5-5.4)
[2023-03-03 19:10] LABS: BASOPHILS % (AUTO) 0.1 % (0.2-1.0); EOSINOPHILS % (AUTO) 0.1 % (0.9-2.9); HEMATOCRIT 25.7 % (36.0-47.0); LYMPHOCYTES # (AUTO) 1.5 X10^3/uL (1.3-2.9); LYMPHOCYTES % (AUTO) 8.1 % (21.0-51.0); MEAN CORPUSCULAR HEMOGLOBIN 28.4 pg (27.0-34.0); MEAN CORPUSCULAR HGB CONC 34.5 g/dL (33.0-35.0); MEAN CORPUSCULAR VOLUME 82.3 fL (80.0-100.0); MEAN PLATELET VOLUME 8.8 fL (7.4-11.0); MONOCYTES % (AUTO) 5.3 % (0.0-13.0); NEUTROPHILS # (AUTO) 15.6 x10^3/uL (2.2-4.8); NEUTROPHILS % (AUTO) 86.4 % (42.0-75.0); RED CELL DISTRIBUTION WIDTH 15.3 % (11.6-16.5)
[2023-03-03 19:13] LABS: INR 1.48 (0.8-1.3)
[2023-03-03 19:17] LABS: ALBUMIN 2.1 g/dL (3.4-5.0); CARBON DIOXIDE 20.1 mmol/L (21-32); COR CA(FOR HYPOALB) 8.5 mg/dL (8.5-10.1); CREATININE 1.51 mg/dL (0.55-1.02); TOTAL PROTEIN 4.6 g/dL (6.4-8.2)
[2023-03-03 19:34] LABS: BAND NEUTROPHILS % 2 % (0-10)
[2023-03-03 19:35] LABS: PLATELET MORPHOLOGY COMMENT NORMAL (NORMAL)
[2023-03-03] MEDS: CLEOCIN 600 MG IV PREMIX 600 MG/50 ML BAG IV SCH (21:49)
[2023-03-03 23:42] LABS: BASOPHILS % (AUTO) 0.2 % (0.2-1.0); EOSINOPHILS % (AUTO) 0.1 % (0.9-2.9); HEMATOCRIT 22.2 % (36.0-47.0); HEMOGLOBIN 7.7 g/dL (12.0-16.0); LYMPHOCYTES # (AUTO) 1.7 X10^3/uL (1.3-2.9); LYMPHOCYTES % (AUTO) 10.5 % (21.0-51.0); MEAN CORPUSCULAR HEMOGLOBIN 28.5 pg (27.0-34.0); MEAN CORPUSCULAR HGB CONC 34.7 g/dL (33.0-35.0); MEAN PLATELET VOLUME 8.9 fL (7.4-11.0); MONOCYTES # (AUTO) 0.9 x10^3/uL (0.3-0.8); MONOCYTES % (AUTO) 5.6 % (0.0-13.0); NEUTROPHILS # (AUTO) 13.6 x10^3/uL (2.2-4.8); NEUTROPHILS % (AUTO) 83.6 % (42.0-75.0); RED BLOOD COUNT 2.71 X10^6/uL (3.5-5.4); RED CELL DISTRIBUTION WIDTH 15.4 % (11.6-16.5); WHITE BLOOD COUNT 16.2 X10^3/uL (3.6-10.0)
--- NOTE | 2023-03-04 00:28 | NOTE.SOAP ---
Soap Note Note for Day of Date of Exam: 03/03/23 Subjective Data Subjective Data: Difficult night last night and this AM. Patient with intense pain last night of the right calf with firm musculature and swelling of the right calf consistent with compartment syndrome. She was taken to the operating room where she underwent four compartment fasciotomy. She has required blood and although not ideal for fasciotomy in a setting of a patient on Heparin and TPA ,this was necessary. This morning she was tachycardic and hypotensive. She is already on PO cardizem which had controlled her heart rate but she remains in atrial fibrillation. Tahycardic( rapid ventricular respnse) this AM to > 150 .She did not respond to additional IV cardizem but did respond to blood, fluids and IV Labetolol . For a short period of time she required support of her blood pres sure with a Levophed drip.. The levophed now been weaned off and she has a stable pulse rea of 80 with atrial fibrillation and her blood pressure of 140 / 80, 100 percent saturation of oxygen by pulse oximeter . CXR shows no evidence of failure and she has no infiltrates . Her right foot remains cool. She continues TPA by a catheter all the way down the right posterior tibial lottery as well as a Heparin drip. She has been resting . Still with pain but much less after fasciotomy. Objective Data Temperature: 8.8 F Pulse Rate: 78 Respiratory Rate: 12 Blood Pressure: 118/54 O2 Sat by Pulse Oximetry: 100 Objective Data: Left foot cool but with biphasic doppler signal of the left posterior tibial artery. Right leg cool below knee. Good biphasic doppler signal of the right popliteal artery. Fasciotomy sites show good muscle color with venous drainage and edema from the fasciotomy sites . Monphasic right posterior tibial artery. Has now required 3 units of PRBCs. On TPA and IV Heparin . Hgb = 7.7 at 2328 hours , K+ =4.3. Creatinine rien to 1.51. Given IVFs and started on renal dose dopamine . 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 with clot in the right tibial peroneal trunk treated with atherectomy and drug coated balloon angioplasty of the right SFA, atherectomy and EKOS thrombolysis ( 4 hour infusion)of the clot in the tibial peroneal trunk with extravasation from the proximal posterior tibial artery requiring placement of a covered stent the next day after failure of prolonged balloon dilation, that evening followed by new onset of atrial fibrillation with RVR causing thrombosis of entire right SFA , right tibial peroneal trunk and inside the stent in the proximal right posterior tibial artery requiring Angiojet thrombectomy and more TPA . 2) New onset atrial fibrillation initially with RVR controlled with IV cardiazem and IV Labetolol seen by Cardiology and stated on po Cardiazem and anticoagulation. Rate now controlled as above with stable vital signs. Will need bed bug exterminator anticoagulation 3 Must be concerned about bleeding from the fasciotomy sites . This should improve after I stop the TPA tomorrow. Will transfuse 4th unit of blood. 4) Concerned about usp viability of the right leg. Because of hypotension this AM , continued TPA for another 24 hours. Will stop TPA in AM and reassess. 5) Had some decreased urine output and rise in creatinine. Bolused with fluid and started renal dose dopamine . Urine output increased. For BMP in AM .
[2023-03-04] MEDS: HEPARIN SODIUM IN D5W 25,000 UNITS/500 ML BAG IV PRN (00:46)
[2023-03-04] MEDS: DILAUDID INJ IVP PRN ×7 (01:09→23:13)
[2023-03-04] MEDS: DOPAMINE IV PREMIX 400 MG/250 ML 400 MG/250 ML BAG IV PRN (03:07)
[2023-03-04] MEDS: CARDIZEM TAB 30 MG PLAIN PO SCH ×4 (04:50→21:28)
[2023-03-04] MEDS: SYNTHROID 112 mcg TAB PO SCH (05:42)
[2023-03-04] MEDS: CLEOCIN 600 MG IV PREMIX 600 MG/50 ML BAG IV SCH ×3 (05:42→21:27)
[2023-03-04 06:18] LABS: BASOPHILS # (AUTO) 0.1 X10^3/uL (0.0-0.1); BASOPHILS % (AUTO) 0.4 % (0.2-1.0); EOSINOPHILS # (AUTO) 0.1 x10^3/uL (0.0-0.2); EOSINOPHILS % (AUTO) 0.5 % (0.9-2.9); HEMATOCRIT 30.2 % (36.0-47.0); LYMPHOCYTES # (AUTO) 2.2 X10^3/uL (1.3-2.9); LYMPHOCYTES % (AUTO) 11.9 % (21.0-51.0); MEAN CORPUSCULAR HEMOGLOBIN 29.4 pg (27.0-34.0); MEAN CORPUSCULAR HGB CONC 35.1 g/dL (33.0-35.0); MEAN CORPUSCULAR VOLUME 83.7 fL (80.0-100.0); MEAN PLATELET VOLUME 9.1 fL (7.4-11.0); MONOCYTES # (AUTO) 1.1 x10^3/uL (0.3-0.8); MONOCYTES % (AUTO) 5.9 % (0.0-13.0); NEUTROPHILS % (AUTO) 81.3 % (42.0-75.0); RED BLOOD COUNT 3.61 X10^6/uL (3.5-5.4); RED CELL DISTRIBUTION WIDTH 15.7 % (11.6-16.5); WHITE BLOOD COUNT 18.4 X10^3/uL (3.6-10.0)
[2023-03-04 06:26] LABS: ALBUMIN 2.5 g/dL (3.4-5.0); CALCIUM 7.6 mg/dL (8.5-10.1); CARBON DIOXIDE 20.8 mmol/L (21-32); COR CA(FOR HYPOALB) 8.8 mg/dL (8.5-10.1); CREATININE 1.33 mg/dL (0.55-1.02); TOTAL PROTEIN 5.4 g/dL (6.4-8.2)
[2023-03-04 06:34] LABS: HEMOGLOBIN 10.6 g/dL (12.0-16.0)
[2023-03-04 06:41] LABS: BAND NEUTROPHILS % 1 % (0-10)
[2023-03-04 06:44] LABS: PLATELET MORPHOLOGY COMMENT NORMAL (NORMAL)
[2023-03-04] MEDS ORDERED: NS 1,000 ML IV 1,000 ML IV ONE ×2 (07:41→20:02)
[2023-03-04] MEDS: ATIVAN TAB 0.5 MG PO PRN ×2 (08:00→23:18)
[2023-03-04] MEDS: ZESTRIL TAB 10 MG PO SCH (08:01)
[2023-03-04] MEDS: LIPITOR TAB 20 MG PO SCH (08:01)
[2023-03-04] MEDS: ASPIRIN EC 81 MG PO SCH (08:01)
[2023-03-04] MEDS: PULMICORT NEB TX 0.5 MG NEB SCH ×2 (08:01→21:05)
[2023-03-04] MEDS: XOPENEX 1.25 MG/3 ML NEBULE NEB SCH ×4 (08:02→21:05)
[2023-03-04] MEDS: NS 1,000 ML IV 1,000 ML IV SCH ×3 (08:02→22:00)
[2023-03-04] MEDS: ATIVAN INJ 2 MG VIAL IVP PRN ×2 (10:08→20:10)
[2023-03-04 15:43] LABS: BASOPHILS % (AUTO) 0.1 % (0.2-1.0); EOSINOPHILS # (AUTO) 0.1 x10^3/uL (0.0-0.2); EOSINOPHILS % (AUTO) 0.8 % (0.9-2.9); HEMATOCRIT 21.7 % (36.0-47.0); LYMPHOCYTES # (AUTO) 1.2 X10^3/uL (1.3-2.9); LYMPHOCYTES % (AUTO) 7.9 % (21.0-51.0); MEAN CORPUSCULAR HEMOGLOBIN 28.9 pg (27.0-34.0); MEAN CORPUSCULAR HGB CONC 34.5 g/dL (33.0-35.0); MEAN CORPUSCULAR VOLUME 83.7 fL (80.0-100.0); MEAN PLATELET VOLUME 9.1 fL (7.4-11.0); MONOCYTES # (AUTO) 0.9 x10^3/uL (0.3-0.8); MONOCYTES % (AUTO) 6.3 % (0.0-13.0); NEUTROPHILS # (AUTO) 12.8 x10^3/uL (2.2-4.8); NEUTROPHILS % (AUTO) 84.9 % (42.0-75.0); RED BLOOD COUNT 2.59 X10^6/uL (3.5-5.4); RED CELL DISTRIBUTION WIDTH 15.3 % (11.6-16.5); WHITE BLOOD COUNT 15.1 X10^3/uL (3.6-10.0)
[2023-03-04 15:51] LABS: HEMOGLOBIN 7.5 g/dL (12.0-16.0)
[2023-03-04 15:54] LABS: PLATELET MORPHOLOGY COMMENT NORMAL (NORMAL)
[2023-03-04] MEDS ORDERED: HEPARIN SODIUM INJ 5000 UNITS IVP ONE (20:01)
[2023-03-04 20:44] LABS: HEMATOCRIT 23.5 % (36.0-47.0)
[2023-03-05] MEDS: NS 1,000 ML IV 1,000 ML IV SCH ×3 (01:57→17:44)
[2023-03-05] MEDS: ATIVAN INJ 2 MG VIAL IVP PRN ×2 (03:56→20:10)
[2023-03-05] MEDS: HEPARIN SODIUM IN D5W 25,000 UNITS/500 ML BAG IV PRN (04:00)
[2023-03-05] MEDS: DILAUDID INJ IVP PRN ×6 (04:44→21:06)
[2023-03-05 05:06] LABS: BASOPHILS % (AUTO) 0.1 % (0.2-1.0); EOSINOPHILS # (AUTO) 0.1 x10^3/uL (0.0-0.2); HEMATOCRIT 23.7 % (36.0-47.0); HEMOGLOBIN 8.2 g/dL (12.0-16.0); LYMPHOCYTES # (AUTO) 1.6 X10^3/uL (1.3-2.9); LYMPHOCYTES % (AUTO) 10.9 % (21.0-51.0); MEAN CORPUSCULAR HEMOGLOBIN 28.8 pg (27.0-34.0); MEAN CORPUSCULAR HGB CONC 34.5 g/dL (33.0-35.0); MEAN CORPUSCULAR VOLUME 83.6 fL (80.0-100.0); MEAN PLATELET VOLUME 9.2 fL (7.4-11.0); MONOCYTES # (AUTO) 0.9 x10^3/uL (0.3-0.8); MONOCYTES % (AUTO) 6.3 % (0.0-13.0); NEUTROPHILS # (AUTO) 12.1 x10^3/uL (2.2-4.8); NEUTROPHILS % (AUTO) 81.7 % (42.0-75.0); RED BLOOD COUNT 2.83 X10^6/uL (3.5-5.4); RED CELL DISTRIBUTION WIDTH 15.7 % (11.6-16.5); WHITE BLOOD COUNT 14.9 X10^3/uL (3.6-10.0)
[2023-03-05] MEDS: CLEOCIN 600 MG IV PREMIX 600 MG/50 ML BAG IV SCH ×3 (05:09→21:06)
[2023-03-05] MEDS: CARDIZEM TAB 30 MG PLAIN PO SCH ×3 (05:09→21:06)
[2023-03-05 05:17] LABS: ALANINE AMINOTRANSFERASE 28 Units/L (12-78); ALKALINE PHOSPHATASE 40 Units/L (46-116); ASPARTATE AMINO TRANSFERASE 57 Units/L (15-37); BLOOD UREA NITROGEN 22 mg/dL (7-18); CARBON DIOXIDE 21.1 mmol/L (21-32); CHLORIDE 111 mmol/L (98-107); COR CA(FOR HYPOALB) 8.6 mg/dL (8.5-10.1); COR NA(FOR HYPERGLY) 144 mmol/L (136-145); CREATININE 1.06 mg/dL (0.55-1.02); SODIUM 143 mmol/L (136-145); TOTAL PROTEIN 4.4 g/dL (6.4-8.2); eGFR NON BLACK RACES 54 (>60)
[2023-03-05] MEDS: SYNTHROID 112 mcg TAB PO SCH (05:31)
[2023-03-05 05:52] LABS: BAND NEUTROPHILS % 3 % (0-10); PLATELET MORPHOLOGY COMMENT NORMAL (NORMAL)
[2023-03-05] MEDS: ASPIRIN EC 81 MG PO SCH (08:41)
[2023-03-05] MEDS: LIPITOR TAB 20 MG PO SCH (08:42)
[2023-03-05] MEDS: ZESTRIL TAB 10 MG PO SCH (08:43)
[2023-03-05] MEDS ORDERED: HEPARIN SODIUM INJ 5000 UNITS ONE (08:52)
[2023-03-05] MEDS: PULMICORT NEB TX 0.5 MG NEB SCH ×2 (08:52→20:11)
[2023-03-05] MEDS: XOPENEX 1.25 MG/3 ML NEBULE NEB SCH ×4 (08:52→20:11)
--- NOTE | 2023-03-05 10:57 | NOTE.SOAP ---
Soap Note Note for Day of Date of Exam: 03/04/23 Subjective Data Subjective Data: Patient has been clinically stable since yesterday with exception of right leg still being cool. Atrial fibrillation is still present but heart rate is controlled. Better urine output with fluids and renal dose dopamine. Thrombolytic catheter removed from the right leg and heparin drip continues. Has required IV pain medications for pain and anxiety. Has required intermittent BP support with Levophed, then weaned off. Bleeding less from fasciotomy sites since TPA discontinued. Objective Data Temperature: 97.3 F Pulse Rate: 86 Respiratory Rate: 17 Blood Pressure: 100/47 O2 Sat by Pulse Oximetry: 98 Objective Data: As above. Stable heart rate and with no difficulty breathing with 100 % oxygen saturation on room air . Left leg warm ( was cool earlier). Good doppler signal left PT artery . Right leg cool. Good doppler signal right popliteal artery with absent doppler signals right foot. Assessment Assessment: Clinically doing well in regard to atrial fibrillation . Elevated WBC count. Started on IV antibiotics . Right foot in jeopardy. Plan Plan: Discussed with family. Patient not a good candidate for bypass with significant swelling of the right leg and the skin incisions for fasciotomies medial and lateral . Will observe. Continue to treat atrial fibrillation which is stable. Continue IV antibiotics. Continue IV heparin. Continue to monitor CBC and right leg .
--- NOTE | 2023-03-05 15:14 | DR.OPNOTE ---
OP NOTE Pre-Op Diagnosis: critical ischemia right leg Post-Op Diagnosis: same Procedure Date Date Of Procedure: 02/27/23 Procedure: PROCEDURE: Diagnostic aortogram , diagnostic arteriogram right lower extremity atherectomy and drug-coated balloon angioplasty of the right superficial femoral artery, atherectomy and balloon angioplasty right posterior tibial artery ,placement of EKOS thrombolytic catheter all the way down the tibial peroneal trunk and posterior tibial artery for 4 hours of directed thrombolysis. NARRATIVE : Patient was taking to the operative suite and placed in the supine position. Left groin and entire right leg were prepped and draped in sterile fashion. The patient was given intravenous sedation which was supervised by myself. Time out for the procedure obtained . Ultrasound used to identify the left common femoral artery and the skin overlying it infiltrated with 0.5% Marcaine . Ultrasound used to guide puncture of the left femoral artery and 0.012 inch guidewire placed. Incision made over the skin edge with number 11 knife blade and a micro sheath placed over the guide wire into the left common femoral artery . Small guide wire exchanged for a 0.035 inch Advantage glide wire and the micro sheath exchanged for a 5 Fr vascular sheath .Patient given 5000 units of IV Heparin. An additional 3000 units of heparin given at 1 hour. Omni catheter placed over the glide wire into the aorta and aortogram performed showing normal aorta with question of possible disease in the right common iliac artery . Later repeat arteriogram with different orientation showing no obvious stenosis of the right common iliac artery. No iliac disease was confirmed on CT angiogram. The Omni catheter used to steer the guide wire down the right femoral artery. Omni catheter parked in the distal right exter nal iliac artery. Sequential arteriograms carried out of the right leg showing severe stenosis, near complete occlusion of the distal right superficial femoral artery at the adductor canal with diffuse disease of the proximal right superficial femoral artery The tibial peroneal trunk had complete occlusion which appeared to be thrombus. The anterior tibial artery was occluded which had been noted on the CT angiogram. However ,now the right tibial peroneal trunk and posterior tibial artery all appeared to have thrombus in them. Guide wire and [place] catheter used to cross the severe stenosis in the adductor canal and into the right posterior tibial artery .The 5 Fr sheath in the left groin was exchanged for a 7 Fr destination sheath which was parked in the proximal right external iliac artery . [place] catheter placed over this large guidewire all the way into the posterior tibial artery. The 0.035 inch glide wire exchanged for a 0.014 inch guide as selective catherization of the right posterior tibial artery . Over this 0.014 inch wire we placed the [place] atherectomy device and performed atherectomy of the entire right superficial femoral artery as there was some diffuse disease proximally .Atherectomy device was slowly taken through the tibial peroneal trunk and then was taken into the proximal right posterior tibial but would not advance beyond the proximal right posterior tibial artery Follow-up arteriogram still showed a small amount of clot. In the proximal right posterior tibial there appeared to be a small area of extravasation at the proximal posterior tibial artery where the atherectomy device had stopped I tried to place a 3.0 mm balloon from above over the wire across the area of extravasation but was unsuccessful. Therefore I elected to access the posterior tibial artery from the ankle . Ultrasound used to identify the right posterior tibial artery at the ankle and punctured it with a needle and a 0.012 inch guide wire placed. Incision made over the guide wire at the skin edge and a [address] over the guide wire into the posterior tibial artery . Arteriogram confirmed this was the posterior tibial artery . 0.035 inch guide wire was placed through this and the 4 Fr sheath exchanged for a 6 Fr sheath . 0.035 inch wire taken from below all the way to the superficial femoral artery without difficulty. From below the posterior tibial artery was ballooned for 3 min with a 3 mm x 220 mm balloon. From above the superficial femoral artery was balloon dilated with a 5 mm by 200 mm drug coated balloon inflated for three minutes . From above an EKOS catheter was placed all the way to the proximal right posterior tibial artery and and guide wire removed and replaced with the inner core of the EKOS catheter. 3 mg of TPA given as a bolus through the drug port and drip of 1 mg/ hour started . 30 cc /hr of saline started through the coolant port. EKOS device connected for vibration support. Heparin started through the side port of the 7 Fr sheath . Dressings applied and the patient taken to the PACU for 4 hours of the EKOS catheter and then will be returned to the OR for further intervention. Type of Anesthesia: Local (0.5% Marcaine ) Anesthesia Comment: plus MAC Findings: Severe stenosis, near total occlusion of the right distal superficial femoral artery, occluded right anterior tibial artery( noted on pre- op CT angiogram) , thrombus occluding the right tibial peroneal trunk completely and occlusion entire right posterior tibial artery and right proximal peroneal artery. On the original CTA the right tib- peroneal trunk , right peroneal artery and right posterior tibial arteries were open. Type of Fluids Used:: Lactated Ringers Total Amount of Fluid Infused:: 750 cc Urine output: 150 cc EBL: < 50 cc Complications:: none Needle/Sponge Count:: correct Disposition/Condition: Pt. tolerated procedure. Taken to PACU with EKOS catheter in place for thrombolysi .
[2023-03-05] MEDS ORDERED: ELIQUIS ONE (15:50)
[2023-03-05] MEDS: ELIQUIS PO SCH (16:00)
--- NOTE | 2023-03-05 18:50 | DR.OPNOTE ---
OP NOTE Pre-Op Diagnosis: critical right leg ischemia , See opertive report prior to this one Post-Op Diagnosis: same,Right SFA open, right tib-peroneal trunk and right PT artery open Procedure Date Date Of Procedure: 02/27/23 Procedure: PROCEDURE: ARTERIOGRAM RIGHT LEG, PROLONGED ANGIOPLASTY RIGHT POSTERIOR TIBIAL ARTERY NARRATIVE : Please see surgery note from earlier the same day. Patient s/p atherectomy and drug coated angioplasty of the right superficial femoral artery and atherectomy and angioplasty of right posterior tibial artery with question of extravasation from the proximal right anterior tibial artery. Patient also with thrombus in the right tibial peroneal trunk and right posterior tibial artery and had 4 hours of EKOS thrombolysis of the right tibial peroneal trunk and right posterior tibial artery. Patient taken to the OR and had the left groin and entire right leg prepped and draped in sterile fashion. Sheaths in left groin and right posterior tibial artery at the ankle still in place . Patient given IV sedation supervised by myself. Time out for the procedure performed. Heparin drip had been continued of the patient while in the PACU given concomitantly with the TPA. TPA stopped shortly before coming to the OR. Arteriogram performed for the right leg from the sheath above showing good result of the atherectomy and drug coated angioplasty of the right superficial femoral artery showing excellent result. The clot had been resolved in the right tibial peroneal trunk and in the right posterior tibial artery. There was still some extravasation of the right posterior tibial artery proximally but had excellent flow all the way to the ankle with back filling of the right peroneal artery. Wire was placed from the ankle and the posterior tibial and tib - peroneal trunk on the right ballooned open for 3 minutes with 3 mmx 220 mm Ayo balloon. Arteriogram still showed some extravasation form the proximal right posterior tibial artery with good flow to the ankle. From above 0.035 inch wire and [place] catheter placed and attempt to cross the proximal occlusion of the right peroneal artery and then used a 0.014 inch wire and was unsuccessful. Arteriogram showed dissection and further attempts suspended . Arteriogram showed good filling of the right posterior tibial artery all the way to the ankle with retrograde filling of the right peroneal artery. Patient taken to the ICU for continued care and IV heparin with plan to bring back the next day 02/28/2023 and see if micro - extravasation is still occurring or resolved. Type of Anesthesia: Local Anesthesia Comment: plus MAC Findings: Right SFA open after atherectomy and drug coated balloon angioplasty, possible dissection of right peroneal artery. Right posterior tibial artery with area of micro-extravasation of the proximal right posterior tibial artery Type of Fluids Used:: Lactated Ringers Total Amount of Fluid Infused:: 600 cc EBL: 50 cc Complications:: possible dissection of the proximal right posterior tibial artery Needle/Sponge Count:: correct Disposition/Condition: Pt. tolerated procedure without difficulty. Taken to ICU for continued observation.
--- NOTE | 2023-03-05 19:35 | DR.OPNOTE ---
OP NOTE Pre-Op Diagnosis: critical ischemia right leg Post-Op Diagnosis: same Procedure Date Date Of Procedure: 02/28/23 Procedure: PROCEDURE: ARTERIOGRAM RIGHT LEG, INTRAVASCULAR ULTRASOUND RIGHT POSTERIOR TIBIAL ARTERY, COVERED STENT PLACEMENT OF PROXIMAL RIGHT POSTERIOTIBAL ARTERY. NARRATIVE: The patient was taken to the operative suite and placed in the supine position. Sheaths were already in the left groin extending to the right leg and in the right posterior tibial artery at the ankle . Left groin and entire right leg were prepped and draped in sterile fashion. Patient was administered intravenous sedation which was supervised by myself. Time out for the procedure obtained. Arteriogram carried out through the sheath in the right femoral artery showing good flow through the right superficial femoral artery with resolution of the stenosis at the adductor canal, with good flow into the right popliteal artery, good flow in the right tibial peroneal trunk and into the right posterior tibial artery all the way to the right ankle. There still was a small area of extravasation in the right posterior tibial artery proximally. We placed a 0.014 inch wire from the sheath at the right ankle. Intravascular ultrasound probe placed showing the area of concern in the proximal right posterior tibial artery . It not very big and there was good flow around it. Over the wire we placed a [place] Viabahn 6 mm by 80 mm covered stent and positioned it beginning at the takeoff of the right posterior tibial artery and then balloon dilated it with a 4mm x 80 mm Ayo balloon. F/U arteriogram showed resolution of the extravasation and good flow all the way around the right ankle . The patient had been on Heparin the entire time. Sheath in the left groin pulled back into the aorta and a 0.035 inch wire placed . The 7 Fr sheath was exchanged for an Angio seal device to close the puncture in the left femoral artery. Tibial band was placed over the puncture site of the right posterior tibial artery at the ankle and inflated and the sheath removed. There was no active bleeding. Dressing applied to left groin and the patient taking back to the ICU for continued observation. Type of Anesthesia: Local Anesthesia Comment: plus MAC Findings: Patent right superficial femoral artery, patent right tibial peroneal trunk, patent right posterior tibial artery still with small amount of extravasation proximally. Type of Fluids Used:: Lactated Ringers Total Amount of Fluid Infused:: 350 cc Urine output: 150 cc EBL: 100 cc Hardware: 6mm x 80 mm Viabahn stent placed in proximal right posterior tibial artery and dilated with a 4 mm x 80 mm Ayo balloon. Complications:: none Needle/Sponge Count:: correct Disposition/Condition: Pt. tolerated procedure without difficulty. Taken to the ICU in stable condition.
--- NOTE | 2023-03-05 21:02 | NOTE.SOAP ---
Soap Note Note for Day of Date of Exam: 03/05/23 Subjective Data Subjective Data: Patient has been stable hemodynamically , now in sinus rhythm. . BP 174/80 and has not required any additional BP support. Left foot warm. Right foot is warmer. Left PT with good doppler signal. I cannot hear a signal in the right foot but is is definitely warmer. Good doppler signal in the right popliteal artery . Since TPA stopped blood count has been stable. Objective Data Temperature: 97.3 F Pulse Rate: 99 Respiratory Rate: 29 Blood Pressure: 174/80 O2 Sat by Pulse Oximetry: 95 Objective Data: As above , right leg fasciotomy incisions show pink muscle with venous clot. No active bleeding . Assessment Assessment: Atrial fibrillation is controlled. Right warming up but still cool and ischemic. Not moving right foot well. Plan Plan: Continue present care. Plan to restart her anti hypertensives and her Synthroid. Daughter has inquired about transfer to [place]. She will let me know her decision. Monitor right leg, CBC and cardiac status.
[2023-03-05] MEDS ORDERED: BENADRYL INJ 50 MG VIAL IVP ONE (21:26)
[2023-03-06] MEDS: DILAUDID INJ IVP PRN ×4 (00:38→20:06)
[2023-03-06] MEDS: NS 1,000 ML IV 1,000 ML IV SCH ×4 (02:09→18:39)
[2023-03-06 05:17] LABS: BASOPHILS % (AUTO) 0.1 % (0.2-1.0); EOSINOPHILS # (AUTO) 0.2 x10^3/uL (0.0-0.2); EOSINOPHILS % (AUTO) 1.6 % (0.9-2.9); HEMATOCRIT 23.2 % (36.0-47.0); HEMOGLOBIN 8.1 g/dL (12.0-16.0); LYMPHOCYTES # (AUTO) 1.3 X10^3/uL (1.3-2.9); LYMPHOCYTES % (AUTO) 10.2 % (21.0-51.0); MEAN CORPUSCULAR HEMOGLOBIN 29.1 pg (27.0-34.0); MEAN CORPUSCULAR HGB CONC 34.7 g/dL (33.0-35.0); MEAN CORPUSCULAR VOLUME 83.9 fL (80.0-100.0); MEAN PLATELET VOLUME 9.1 fL (7.4-11.0); MONOCYTES # (AUTO) 0.8 x10^3/uL (0.3-0.8); MONOCYTES % (AUTO) 6.2 % (0.0-13.0); NEUTROPHILS # (AUTO) 10.8 x10^3/uL (2.2-4.8); NEUTROPHILS % (AUTO) 81.9 % (42.0-75.0); RED BLOOD COUNT 2.77 X10^6/uL (3.5-5.4); RED CELL DISTRIBUTION WIDTH 15.9 % (11.6-16.5); WHITE BLOOD COUNT 13.1 X10^3/uL (3.6-10.0)
[2023-03-06 05:29] LABS: ALANINE AMINOTRANSFERASE 40 Units/L (12-78); ALBUMIN 2.3 g/dL (3.4-5.0); ALKALINE PHOSPHATASE 47 Units/L (46-116); ASPARTATE AMINO TRANSFERASE 138 Units/L (15-37); BLOOD UREA NITROGEN 14 mg/dL (7-18); CALCIUM 7.5 mg/dL (8.5-10.1); CARBON DIOXIDE 21.8 mmol/L (21-32); CHLORIDE 109 mmol/L (98-107); COR CA(FOR HYPOALB) 8.9 mg/dL (8.5-10.1); COR NA(FOR HYPERGLY) 143 mmol/L (136-145); CREATININE 0.89 mg/dL (0.55-1.02); SODIUM 142 mmol/L (136-145); TOTAL PROTEIN 4.8 g/dL (6.4-8.2); eGFR NON BLACK RACES > 60 (>60)
[2023-03-06] MEDS: SYNTHROID 125 mcg TAB PO SCH (05:31)
[2023-03-06] MEDS: CARDIZEM TAB 30 MG PLAIN PO SCH ×3 (05:31→21:51)
[2023-03-06] MEDS: CLEOCIN 600 MG IV PREMIX 600 MG/50 ML BAG IV SCH ×3 (05:41→21:51)
[2023-03-06 05:42] LABS: BAND NEUTROPHILS % 3 % (0-10); PLATELET MORPHOLOGY COMMENT NORMAL (NORMAL)
[2023-03-06] MEDS: PULMICORT NEB TX 0.5 MG NEB SCH ×3 (07:52→20:08)
[2023-03-06] MEDS: XOPENEX 1.25 MG/3 ML NEBULE NEB SCH ×5 (07:53→20:09)
[2023-03-06] MEDS: LIPITOR TAB 20 MG PO SCH (08:12)
[2023-03-06] MEDS: ZESTRIL TAB 10 MG PO SCH (08:13)
[2023-03-06] MEDS: ELIQUIS PO SCH ×2 (08:13→21:51)
[2023-03-06] MEDS: ASPIRIN EC 81 MG PO SCH (08:13)
[2023-03-06] MEDS: ATIVAN INJ 2 MG VIAL IVP PRN (08:50)
--- NOTE | 2023-03-06 10:00 | RAD ---
HISTORYLeg ischemiaSTUDYAP chestCOMPARISONApril 2022FINDINGSHeart size remains upper-normal with stable position of right IJ line. There is increasing vascular congestion and bilateral airspace involvement. Small pleural effusions may be present.IMPRESSIONInterval development of pulmonary and probable pleural changes concerning for CHF/pneumonia.Electronically signed by: YESI CAMERON (Mar 06, 2023 09:59:33)
--- NOTE | 2023-03-06 12:13 | DR.OPNOTE ---
OP NOTE Pre-Op Diagnosis: Compartment syndrome right calf Post-Op Diagnosis: same Procedure Date Date Of Procedure: 03/02/23 Procedure: PROCEDURE: Four compartment fasciotomy of the right calf NARRATIVE: Patient was taken to the operating room and remained on the bed. Impervious sheet placed below the right leg and the right calf prepped and draped in sterile fashion. Time out for the procedure obtained. The patient was given intravenous sedation supervised by myself. The skin of latter aspect of the right calf in the mid fibula was infiltrated longitudinally along the mid fibula with 10 cc of 0.5% Marcaine . 3 cm skin incision made parallel and over the fibula . Fascia over the anterior compartment opened with a 15 blade knife and Metzenbaum scissors used to extend the incision opening the fascia cephalad and caudad. Identical procedure carried out of the lateral compartment. Skin of the medial mid calf infiltrated with 0.5% Marcaine and a 3 cm incision made longitudinally along the right mid calf calf. The superficial posterior compartment had the fascia opened cephalad and caudad with Metzenbaum scissors . Identical procedure carried out of the deep posterior compartment. The muscle bulged out and was viable Each incision packed loosely with gauze and covered with Kerlix and Gabriele wrap . Patient returned to the ICU. She remained on TPA and heparin during this procedure We expect bleeding which may need to be replaced. Type of Anesthesia: Local (0.5 % Marcaine) Anesthesia Comment: plus MAC Findings: compartment syndrome right calf Type of Fluids Used:: Lactated Ringers EBL: minimal Complications:: none Needle/Sponge Count:: correct Disposition/Condition: Pt. tolerated procedure without difficulty. Patietn taken to the ICU in stable condition.
[2023-03-06 12:57] VITALS: BMI 31.2
--- NOTE | 2023-03-06 13:16 | EKG ---
Test Reason : Increased heart rate Blood Pressure : */* mmHG Vent. Rate : 146 BPM Atrial Rate : * BPM P-R Int : * ms QRS Dur : 90 ms QT Int : 314 ms P-R-T Axes : * 33 186 degrees QTc Int : 489 ms Supraventricular tachycardia Low voltage QRS Cannot rule out Anterior infarct , age undetermined Abnormal ECG When compared with ECG of 28-FEB-2023 21:20, Sinus rhythm has replaced Atrial fibrillation Confirmed by Samy Mcmanus ([id number]) on 03/08/2023 11:20:20 AM Referred By: Confirmed By: Samy Mcmanus
[2023-03-06] MEDS ORDERED: NORMODYNE INJ 100 MG VIAL IVP ONE (13:41)
[2023-03-06] MEDS ORDERED: NORMODYNE INJ 20 MG VIAL IVP NR (14:00)
[2023-03-06] MEDS: ATIVAN TAB 0.5 MG PO PRN (16:48)
[2023-03-06] MEDS ORDERED: NORMODYNE INJ 20 MG VIAL IVP ONE (18:14)
[2023-03-06] MEDS: DOPAMINE IV PREMIX 400 MG/250 ML 400 MG/250 ML BAG IV PRN (18:40)
--- NOTE | 2023-03-07 | NOTE.SOAP ---
Soap Note Note for Day of Date of Exam: 03/06/23 Subjective Data Subjective Data: S/p multiple arterial interventions of the right leg. Right leg cool and mottled. Left leg warm with good PT signal. Mildly confused. Stable heart rhythm , but had tachycardia to 159 today treated with IV Labetolol. Continues on PO Cardiazem. Heaprin transitioned to PO Eliquis. Objective Data Temperature: 97.7 F Pulse Rate: 123 Respiratory Rate: 18 Blood Pressure: 122/71 O2 Sat by Pulse Oximetry: 98 Assessment Assessment: Left foot warm, Right foot mottled. Atrial fibrillation Plan Plan: Family has requested transfer to [place]. Will make that happen yesterday. High risk of right leg loss.
[2023-03-07] MEDS: DILAUDID INJ IVP PRN ×5 (00:30→17:06)
[2023-03-07 04:57] LABS: BASOPHILS # (AUTO) 0.2 X10^3/uL (0.0-0.1); BASOPHILS % (AUTO) 1.5 % (0.2-1.0); EOSINOPHILS # (AUTO) 0.1 x10^3/uL (0.0-0.2); EOSINOPHILS % (AUTO) 0.8 % (0.9-2.9); HEMATOCRIT 21.4 % (36.0-47.0); HEMOGLOBIN 7.3 g/dL (12.0-16.0); LYMPHOCYTES # (AUTO) 0.9 X10^3/uL (1.3-2.9); MEAN CORPUSCULAR HEMOGLOBIN 29.2 pg (27.0-34.0); MEAN CORPUSCULAR HGB CONC 34.2 g/dL (33.0-35.0); MEAN CORPUSCULAR VOLUME 85.4 fL (80.0-100.0); MEAN PLATELET VOLUME 8.9 fL (7.4-11.0); MONOCYTES # (AUTO) 0.8 x10^3/uL (0.3-0.8); MONOCYTES % (AUTO) 6.1 % (0.0-13.0); NEUTROPHILS % (AUTO) 84.6 % (42.0-75.0); RED BLOOD COUNT 2.51 X10^6/uL (3.5-5.4); RED CELL DISTRIBUTION WIDTH 16.3 % (11.6-16.5)
[2023-03-07] MEDS: CARDIZEM TAB 30 MG PLAIN PO SCH ×2 (05:01→14:24)
[2023-03-07] MEDS: CLEOCIN 600 MG IV PREMIX 600 MG/50 ML BAG IV SCH ×2 (05:02→14:25)
[2023-03-07] MEDS: NS 1,000 ML IV 1,000 ML IV SCH ×2 (05:02→14:30)
[2023-03-07 05:10] LABS: BLOOD UREA NITROGEN 13 mg/dL (7-18); CALCIUM 7.6 mg/dL (8.5-10.1); CARBON DIOXIDE 21.6 mmol/L (21-32); CHLORIDE 109 mmol/L (98-107); COR NA(FOR HYPERGLY) 141 mmol/L (136-145); CREATININE 0.83 mg/dL (0.55-1.02); SODIUM 140 mmol/L (136-145); eGFR NON BLACK RACES > 60 (>60)
[2023-03-07 05:13] LABS: PLATELET MORPHOLOGY COMMENT NORMAL (NORMAL)
[2023-03-07] MEDS: SYNTHROID 125 mcg TAB PO SCH (05:32)
[2023-03-07] MEDS: LIPITOR TAB 20 MG PO SCH (08:29)
[2023-03-07] MEDS: ASPIRIN EC 81 MG PO SCH (08:29)
[2023-03-07] MEDS: ZESTRIL TAB 10 MG PO SCH (08:29)
[2023-03-07] MEDS: ELIQUIS PO SCH (08:29)
[2023-03-07] MEDS: PULMICORT NEB TX 0.5 MG NEB SCH (08:59)
[2023-03-07] MEDS: XOPENEX 1.25 MG/3 ML NEBULE NEB SCH ×3 (09:00→17:18)
[2023-03-07] MEDS ORDERED: NORMODYNE INJ 20 MG VIAL IVP PRN (12:02)
--- NOTE | 2023-03-07 15:05 | DR.OPNOTE ---
OP NOTE Pre-Op Diagnosis: New onset atrial fibrillation, loss of pulse in right PT artery Post-Op Diagnosis: same , ischemic right leg Procedure Date Date Of Procedure: 03/02/23 Procedure: PROCEDURE: DIAGNOSTIC AORTOGRAM, DIAGNOSTIC ARTERIOGRAM RIGHT LEG, ANGIOJET THROMBOLYSIS OF THE RIGHT SUPERFICIAL FEMORAL ARTERY, RIGHT POPLITEAL ARTERY, RIGHT TIBIAL PERONEAL TRUNK AND RIGHT POSTERIOR TIBIAL ARTERY, ANGIOPLASTY OF ALL OF THESE ARTERIES OF THE RIGHT LEG AND PLACEMENT OF EKOS CATHETER FOR DIRECTED THROMBOLYSIS OF ALL OF THESE ARTERIES. NARRATIVE : The patient was taken to the operative suite and placed in the Supine position. The left groin and entire right leg were prepped and draped in sterile fashion. Patient was given intravenous sedation which was supervised by myself. Time out for the procedure obtained . Ultrasound used to identify the left common femoral artery and the skin overlying it infiltrated with 0.5 % Marcaine . Ultrasound used to guide puncture of the left femoral artery and a 0.[address] . Incision made over the guide wire at the skin edge with a number 11 knife blade and a micro sheath placed over the guide wire into the left femoral artery . Small guidewire exchanged for a 0.035 inch Advantage glide wire and the micro sheath exchanged for 5 Fr vascular sheath Omni catheter was placed over the guide wire and aortogram carried out in diagnostic fashion showing normal aorta and normal iliac arteries . Omni catheter used to steer the guide wire down the right iliac artery and the catheter placed in the distal right external iliac artery and exchanged over the wire for a [place] catheter Sequential arteriogram carried out of the entire right leg showing complete occlusion of the right superficial femoral artery beginning at its takeoff of the right superficial femoral artery with thrombosis of the superficial femoral artery, popliteal artery, tibial peroneal trunk with non occlusive clot in the distal right posterior tibial artery. The patient had been given an additional bolus of Heparin. She had been on a Heparin drip . 5 Fr sheath in the left groin exchanged for a 7 Fr destination sheath and it was parked in the distal right external iliac artery. 0.035 inch wire placed all the way to the ankle of the right posterior tibial artery . Over this wire we placed the Angio Jet device and performed directed thrombectomy of all of the vessels using it for the maximum time allowed. The Angio Jet device removed and then the right posterior tibial artery was dilated with a 3 mm x 100 mm Ayo angioplasty balloon . The stent in the right posterior tibial artery was dilated with a 4 mm by 220 mm Ayo angioplasty balloon extending across the right tibial- peroneal trunk and popliteal artery. Finally the superficial femoral artery was dilated with a 6mm x 220 mm Ayo balloon. . Arteriogram carried out showing good flow all the way to the right ankle and into the right foot with retrograde filling of the right peroneal artery . EKOS catheter was placed all the way down into the distal part of the right posterior artery at the ankle. Bolus of 3 mg TPA given through the drug port and a drip of TPA 1mg/ hour started. 30 cc / hour of normal saline started through the coolant port . Plan TPA infusion overnight . The patient was taken back to the ICU for continued care after dressings applied. Type of Anesthesia: Local (0.5% Marcaine) Anesthesia Comment: plus MAC Findings: See previous notes . Patient with severe ischemia right leg, s/p multiple interventions. Had good biphasic doppler signal of the right posterior tibial artery. The night of 02/28/2023, the patient went into previously undiagnosed atrial fibrillation with a rapid ventricular rate . Her right foot remained warm until the night of 2022 and she lost her pulse in the right posterior tibial artery with complaints of worsening pain of the right leg. Earlier in the day i had transitioned her from IV heparin to PO Eliquis per Cardiology consult. The entire right superficial femoral artery , popliteal artery, tibial peroneal trunk and the proximal right posterior tibial artery with the stent were thrombosed with non occlusive thrombus of the right posterior tibial artery. Type of Fluids Used:: Lactated Ringers EBL: < 50 cc Complications:: none Disposition/Condition: Pt. tolerated procedure without difficulty. Taken back to ther ICU in stable condition.
[2023-03-07] MEDS ORDERED: LASIX IVP ONE (17:08)
[2023-03-07] MEDS: DOPAMINE IV PREMIX 400 MG/250 ML 400 MG/250 ML BAG IV PRN (17:19)
--- NOTE | 2023-03-07 17:20 | W.DIS.FURT ---
Summary of Discharge Discharge Summary of Date Date of Exam: 03/07/23 Admission Date Date of Admission: 02/27/23 Admission Diagnosis Hospital Course: 77 year old female seen by me on the 16 of February for gangrenous changes of the left third toe with rest pain of both legs . 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 On 02/17 she underwent atherectomy and drug coated balloon angioplasty of the left superficial femoral artery complete oclusion and atherectomy and drug coated balloon angioplasty of the left popliteal artery. Rest pain was relieved of the left leg and she was discharged home with plan for elective intervention of the right leg rest pain . CT angiogram showed near complete occlusion of the right distal superficial femoral artery . She was taken to the OR on 02/27 and arteriogram confirmed the short segment near complete occlusion of the right superficial femoral artery at the adductor canal and evidence of probable thrombosis of the right tibial - peroneal trunk and the right posterior tibial artery which had not been noted on the CT angiogram performed the previous week. She underwent atherectomy of the right SFA, tibial peroneal trunk and the posterior tibial artery .The husam of the Angiojet atherectomy device could not be advanced beyond the proximal posterior tibial artery . Drug coated balloon angioplasty was performed of the right superficial artery after the atherectomy . Arteriogram showed a small area of extravasation of the proximal right posterior tibial artery and still with small amount of thrombus in the right tibial -peroneal trunk and right posterior tibial artery. EKOS thrombolytic catheter placed all the way down into the right posterior tibial artery and directed thrombolysis carried out for 4 hours and the patient returned to the OR where the clot appeared resolved but there was still a small area of extravasation of contrast in the proximal posterior tibial artery. Attempt was mad to canalize the right peroneal artery but we developed a dissection and stopped. Prolonged balloon angioplasty performed of the proximal right posterior tibial artety . Arterigram showed flow all the way to the right ankle and retrograde filling of the right peroneal artery. Planned to observe this overnight and bring back the next day. On 02/28/2023 arteriogram still showed evidence of small area of extravasation in the proximal right posterior tibial arterty. Intravascular ultrasound showed the area of concern but the artery appeared to be intact .This area of the right posterior tibial artery had placement of a covered stent, balloon dilated to 4mm. Arteriogram showed good flow through the stent all the way around the ankle with retrograde filling of the right peroneal artery.She did well and had a warm foot with a biphasic posterior tibial doppler signal on February 28. Late in the evening of February 28 she went into atrial fibrillation with rapid ventricular rate. She was seen in consultation by Cardiology the morning of March 01 who initially treated her with IV cardiazem and transitioned her to to PO cardizem. At that time she was doing well. The heparin drip was stopped as the patient was placed on BID Eliquis per Cardiology . Later that evening she developed loss of doppler signal of the right foot .She had been on Eliquis and was converted back to a Heparin drip at this point. First case the next morning on 02 of March she was taken back to the OR.Arteriogram showed complete thrombosis of the right SFA, right popliteal artery, right tibial peroneal trunk and non occlusion thrombus of the right posterior tibial artery . She underwent Angiojet thombectomy of all of these vessels and balloon angioplasty of all of these vessels . Arteriogram showed flow into the right foot and around the ankle and the stent in the right posterior tibial artery was open . We placed EKOS thrombolytic catheter and planned overnight thrombolysis. Later on the night of March 02 she she developed acute pain of the right calf consistent with compartment syndrome was taken emergently to the operating room where she underwent 4 compartment fasciotomy . She was maintained on TPA and heparin and had bleeding from the fasciotomy sites . She required a total of 5 units of blood transfused. The TPA was stopped after 48 hours and she has had no further bleeding since then. She remains in atrial fibrillation and has had some episodes of tachycardia which has required IV labetalol in addition to the PO Cardizem she is on. She remained stable from a pulmonary standpoint. She has been confused due to IV pain medications and IV Ativan . The right foot has mottling and is very cool. She cannot move the toes on right foot. I do not think the right foot can be salvaged and even if it were I do not think the right lower leg will be functional .Family has requested transfer to [facility]. I have spoken with Dr. Melissa , intensive care physician who has accepted her in transfer. I will also speak with the vascular surgeon sawmill production worker. Vital Signs: Vital Signs (72 hours) 03/05/23 10:43 03/05/23 21:02 03/07/23 00:00 Temperature 97.3 F L 97.3 F L 97.7 F Pulse Rate 86 99 H 123 H Respiratory Rate 17 29 H 18 Blood Pressure 100/47 174/80 122/71 O2 Sat by Pulse Oximetry 98 95 98 Oxygen Delivery Method Oxygen Flow Rate FIO2% 03/04/23 16:30 03/04/23 16:30 03/04/23 17:00 Temperature Pulse Rate 83 Respiratory Rate 17 Blood Pressure 100/47 99/48 O2 Sat by Pulse Oximetry 100 Oxygen Delivery Method Oxygen Flow Rate FIO2% 03/04/23 17:00 03/04/23 17:32 03/04/23 17:26 Temperature Pulse Rate 86 Respiratory Rate 13 23 Blood Pressure 102/50 O2 Sat by Pulse Oximetry 99 Oxygen Delivery Method Oxygen Flow Rate FIO2% 03/04/23 17:26 03/04/23 17:30 03/04/23 17:30 Temperature Pulse Rate 85 91 H Respiratory Rate 12 20 Blood Pressure 105/52 O2 Sat by Pulse Oximetry 100 99 Oxygen Delivery Method Oxygen Flow Rate FIO2% 03/04/23 17:45 03/04/23 17:45 03/04/23 18:00 Temperature Pulse Rate 85 Respiratory Rate 13 Blood Pressure 99/49 99/49 O2 Sat by Pulse Oximetry 99 Oxygen Delivery Method Oxygen Flow Rate FIO2% 03/04/23 18:00 03/04/23 18:02 03/04/23 18:55 Temperature Pulse Rate 84 Respiratory Rate 12 12 Blood Pressure O2 Sat by Pulse Oximetry 97 Oxygen Delivery Method Room Air Oxygen Flow Rate FIO2% 03/04/23 18:15 03/04/23 18:15 03/04/23 18:30 Temperature Pulse Rate 84 83 Respiratory Rate 14 13 Blood Pressure 102/51 O2 Sat by Pulse Oximetry 99 98 Oxygen Delivery Method Oxygen Flow Rate FIO2% 03/04/23 18:30 03/04/23 18:45 03/04/23 18:45 Temperature Pulse Rate 87 Respiratory Rate 14 Blood Pressure 103/52 103/47 O2 Sat by Pulse Oximetry 99 Oxygen Delivery Method Oxygen Flow Rate FIO2% 03/04/23 18:45 03/04/23 19:00 03/04/23 19:00 Temperature Pulse Rate 83 Respiratory Rate 12 Blood Pressure 103/47 108/49 O2 Sat by Pulse Oximetry 100 Oxygen Delivery Method Oxygen Flow Rate FIO2% 03/04/23 19:00 03/04/23 19:00 03/04/23 19:15 Temperature Pulse Rate 83 Respiratory Rate 12 Blood Pressure 108/49 111/55 O2 Sat by Pulse Oximetry 100 Oxygen Delivery Method Oxygen Flow Rate FIO2% 03/04/23 19:15 03/04/23 19:30 03/04/23 19:30 Temperature Pulse Rate 81 81 Respiratory Rate 11 L 15 Blood Pressure 107/49 O2 Sat by Pulse Oximetry 100 100 Oxygen Delivery Method Oxygen Flow Rate FIO2% 03/04/23 19:45 03/04/23 19:45 03/04/23 20:00 Temperature Pulse Rate 81 Respiratory Rate 14 Blood Pressure 109/51 123/56 O2 Sat by Pulse Oximetry 100 Oxygen Delivery Method Oxygen Flow Rate FIO2% 03/04/23 20:00 03/04/23 20:25 03/04/23 20:55 Temperature Pulse Rate 91 H Respiratory Rate 17 26 H 19 Blood Pressure O2 Sat by Pulse Oximetry 100 Oxygen Delivery Method Oxygen Flow Rate FIO2% 03/04/23 20:00 03/04/23 20:30 03/04/23 20:30 Temperature Pulse Rate 86 Respiratory Rate 12 Blood Pressure 123/56 108/51 O2 Sat by Pulse Oximetry 99 Oxygen Delivery Method Oxygen Flow Rate FIO2% 03/04/23 21:00 03/04/23 21:00 03/04/23 21:00 Temperature Pulse Rate 84 Respiratory Rate 18 Blood Pressure 108/48 108/48 O2 Sat by Pulse Oximetry 98 Oxygen Delivery Method Oxygen Flow Rate FIO2% 03/04/23 21:30 03/04/23 21:30 03/04/23 22:00 Temperature Pulse Rate 87 Respiratory Rate 15 Blood Pressure 121/60 116/57 O2 Sat by Pulse Oximetry 98 Oxygen Delivery Method Oxygen Flow Rate FIO2% 03/04/23 22:00 03/04/23 22:30 03/04/23 22:30 Temperature Pulse Rate 89 86 Respiratory Rate 20 15 Blood Pressure 107/53 O2 Sat by Pulse Oximetry 97 99 Oxygen Delivery Method Oxygen Flow Rate FIO2% 03/04/23 23:00 03/04/23 23:00 03/04/23 23:13 Temperature Pulse Rate 88 Respiratory Rate 16 22 Blood Pressure 116/58 O2 Sat by Pulse Oximetry 98 Oxygen Delivery Method Oxygen Flow Rate FIO2% 03/04/23 23:43 03/04/23 23:30 03/04/23 23:30 Temperature Pulse Rate 84 Respiratory Rate 13 12 Blood Pressure 113/55 O2 Sat by Pulse Oximetry 98 Oxygen Delivery Method Oxygen Flow Rate FIO2% 03/05/23 00:00 03/05/23 00:00 03/05/23 00:30 Temperature 97.4 F L Pulse Rate 83 Respiratory Rate 16 Blood Pressure 111/70 102/50 O2 Sat by Pulse Oximetry 99 Oxygen Delivery Method Oxygen Flow Rate FIO2% 03/05/23 00:30 03/05/23 01:00 03/05/23 01:03 Temperature Pulse Rate 84 85 Respiratory Rate 13 17 Blood Pressure 139/59 O2 Sat by Pulse Oximetry 98 99 Oxygen Delivery Method Oxygen Flow Rate FIO2% 03/05/23 01:03 03/05/23 01:34 03/05/23 01:34 Temperature Pulse Rate 91 H 87 Respiratory Rate 18 16 Blood Pressure 123/65 O2 Sat by Pulse Oximetry 96 98 Oxygen Delivery Method Oxygen Flow Rate FIO2% 03/05/23 02:00 03/05/23 02:00 03/05/23 02:30 Temperature Pulse Rate 88 Respiratory Rate 16 Blood Pressure 124/59 129/60 O2 Sat by Pulse Oximetry 99 Oxygen Delivery Method Oxygen Flow Rate FIO2% 03/05/23 02:30 03/05/23 03:00 03/05/23 03:00 Temperature Pulse Rate 86 90 Respiratory Rate 16 15 Blood Pressure 138/63 O2 Sat by Pulse Oximetry 98 98 Oxygen Delivery Method Oxygen Flow Rate FIO2% 03/05/23 03:31 03/05/23 03:31 03/05/23 04:00 Temperature Pulse Rate 90 95 H Respiratory Rate 17 22 Blood Pressure 158/58 O2 Sat by Pulse Oximetry 98 98 Oxygen Delivery Method Oxygen Flow Rate FIO2% 03/05/23 04:01 03/05/23 04:01 03/05/23 04:44 Temperature 97.2 F L Pulse Rate 94 H Respiratory Rate 18 26 H Blood Pressure 159/66 O2 Sat by Pulse Oximetry 98 Oxygen Delivery Method Oxygen Flow Rate FIO2% 03/05/23 05:09 03/05/23 04:33 03/05/23 04:33 Temperature Pulse Rate 96 H Respiratory Rate 21 20 Blood Pressure 139/59 O2 Sat by Pulse Oximetry 97 Oxygen Delivery Method Oxygen Flow Rate FIO2% 03/05/23 05:00 03/05/23 05:00 03/04/23 21:05 Temperature Pulse Rate 96 H Respiratory Rate 21 Blood Pressure 130/62 O2 Sat by Pulse Oximetry 99 Oxygen Delivery Method Room Air Oxygen Flow Rate 3 FIO2% 32 03/04/23 21:05 03/05/23 05:30 03/05/23 05:30 Temperature Pulse Rate 91 H 97 H Respiratory Rate 20 Blood Pressure 136/96 O2 Sat by Pulse Oximetry 97 97 Oxygen Delivery Method Oxygen Flow Rate FIO2% 03/05/23 06:00 03/05/23 06:02 03/05/23 06:02 Temperature Pulse Rate 95 H 96 H Respiratory Rate 22 22 Blood Pressure 125/55 O2 Sat by Pulse Oximetry 98 94 L Oxygen Delivery Method Oxygen Flow Rate FIO2% 03/05/23 07:00 03/05/23 07:00 03/05/23 08:00 Temperature 97.8 F Pulse Rate 87 98 H Respiratory Rate 20 20 Blood Pressure 135/58 135/63 O2 Sat by Pulse Oximetry 98 97 Oxygen Delivery Method Room Air Room Air Room Air Oxygen Flow Rate FIO2% 03/05/23 09:24 03/05/23 08:52 03/05/23 09:00 Temperature Pulse Rate 98 H Respiratory Rate 20 18 Blood Pressure 123/91 O2 Sat by Pulse Oximetry 100 Oxygen Delivery Method Room Air Room Air Oxygen Flow Rate FIO2% 03/05/23 10:00 03/05/23 09:54 03/05/23 12:30 Temperature Pulse Rate 94 H Respiratory Rate 18 20 18 Blood Pressure 130/60 O2 Sat by Pulse Oximetry 97 Oxygen Delivery Method Room Air Oxygen Flow Rate FIO2% 03/05/23 11:00 03/05/23 12:00 03/05/23 13:00 Temperature 97.7 F Pulse Rate 97 H 97 H 95 H Respiratory Rate 20 20 18 Blood Pressure 143/60 143/60 140/63 O2 Sat by Pulse Oximetry 98 98 97 Oxygen Delivery Method Room Air Room Air Room Air Oxygen Flow Rate FIO2% 03/05/23 13:00 03/05/23 14:00 03/05/23 15:00 Temperature Pulse Rate 98 H 96 H Respiratory Rate 18 20 20 Blood Pressure 141/66 156/69 O2 Sat by Pulse Oximetry 98 97 Oxygen Delivery Method Room Air Room Air Oxygen Flow Rate FIO2% 03/05/23 16:00 03/05/23 14:55 03/05/23 15:25 Temperature 98.0 F Pulse Rate 88 Respiratory Rate 22 18 18 Blood Pressure 162/70 O2 Sat by Pulse Oximetry 97 Oxygen Delivery Method Room Air Oxygen Flow Rate FIO2% 03/05/23 17:00 03/05/23 18:00 03/05/23 18:00 Temperature Pulse Rate 91 H 90 Respiratory Rate 20 18 20 Blood Pressure 123/56 174/72 O2 Sat by Pulse Oximetry 96 95 Oxygen Delivery Method Room Air Room Air Oxygen Flow Rate FIO2% 03/05/23 18:30 03/05/23 19:00 03/05/23 19:00 Temperature Pulse Rate Respiratory Rate 11 L Blood Pressure 171/74 O2 Sat by Pulse Oximetry Oxygen Delivery Method Room Air Oxygen Flow Rate FIO2% 03/05/23 19:00 03/05/23 20:12 03/05/23 20:05 Temperature 97.3 F L Pulse Rate 91 H 99 H Respiratory Rate 11 L 29 H Blood Pressure 174/80 O2 Sat by Pulse Oximetry 96 95 Oxygen Delivery Method Oxygen Flow Rate FIO2% 03/05/23 20:05 03/05/23 20:10 03/05/23 20:10 Temperature Pulse Rate 97 H Respiratory Rate Blood Pressure 186/83 O2 Sat by Pulse Oximetry 96 Oxygen Delivery Method Room Air Oxygen Flow Rate FIO2% 03/05/23 21:06 03/05/23 21:05 03/05/23 21:05 Temperature Pulse Rate 102 H Respiratory Rate 29 H 26 H Blood Pressure 178/74 O2 Sat by Pulse Oximetry 95 Oxygen Delivery Method Oxygen Flow Rate FIO2% 03/05/23 21:31 03/05/23 22:00 03/05/23 22:00 Temperature Pulse Rate 100 H Respiratory Rate 23 18 Blood Pressure 169/72 O2 Sat by Pulse Oximetry 96 Oxygen Delivery Method Oxygen Flow Rate FIO2% 03/05/23 23:00 03/05/23 23:01 03/06/23 00:00 Temperature 97.5 F L Pulse Rate 97 H Respiratory Rate 18 Blood Pressure 160/72 159/70 O2 Sat by Pulse Oximetry 95 Oxygen Delivery Method Oxygen Flow Rate FIO2% 03/06/23 00:00 03/06/23 00:38 03/06/23 01:00 Temperature Pulse Rate 101 H Respiratory Rate 16 19 Blood Pressure 165/72 O2 Sat by Pulse Oximetry 95 Oxygen Delivery Method Oxygen Flow Rate FIO2% 03/06/23 01:00 03/06/23 01:08 03/06/23 02:04 Temperature Pulse Rate 99 H Respiratory Rate 12 14 Blood Pressure 174/64 O2 Sat by Pulse Oximetry 95 Oxygen Delivery Method Oxygen Flow Rate FIO2% 03/06/23 02:00 03/06/23 02:01 03/06/23 03:00 Temperature Pulse Rate 103 H Respiratory Rate 15 Blood Pressure 189/69 179/81 O2 Sat by Pulse Oximetry 95 Oxygen Delivery Method Oxygen Flow Rate FIO2% 03/06/23 03:00 03/06/23 03:55 03/06/23 04:00 Temperature 97.4 F L Pulse Rate 107 H Respiratory Rate 17 22 Blood Pressure 173/73 O2 Sat by Pulse Oximetry 95 Oxygen Delivery Method Oxygen Flow Rate FIO2% 03/06/23 04:00 03/06/23 04:25 03/06/23 05:00 Temperature Pulse Rate 104 H Respiratory Rate 14 13 Blood Pressure 163/74 O2 Sat by Pulse Oximetry 94 L Oxygen Delivery Method Oxygen Flow Rate FIO2% 03/06/23 05:00 03/06/23 06:00 03/06/23 06:00 Temperature Pulse Rate 104 H 107 H Respiratory Rate 14 16 Blood Pressure 157/69 O2 Sat by Pulse Oximetry 97 96 Oxygen Delivery Method Oxygen Flow Rate FIO2% 03/06/23 07:00 03/06/23 07:00 03/06/23 07:00 Temperature Pulse Rate 108 H Respiratory Rate 18 Blood Pressure 160/70 O2 Sat by Pulse Oximetry 97 Oxygen Delivery Method Room Air Oxygen Flow Rate FIO2% 03/06/23 08:00 03/06/23 08:00 03/06/23 07:52 Temperature 97.9 F Pulse Rate 110 H Respiratory Rate 22 Blood Pressure 158/70 O2 Sat by Pulse Oximetry 100 Oxygen Delivery Method Room Air Oxygen Flow Rate FIO2% 03/06/23 07:52 03/06/23 09:00 03/06/23 09:00 Temperature Pulse Rate 116 H Respiratory Rate 20 Blood Pressure 166/72 O2 Sat by Pulse Oximetry 97 98 Oxygen Delivery Method Oxygen Flow Rate FIO2% 03/06/23 10:00 03/06/23 10:02 03/06/23 10:02 Temperature Pulse Rate 117 H 117 H Respiratory Rate 22 29 H Blood Pressure 130/91 O2 Sat by Pulse Oximetry 98 98 Oxygen Delivery Method Oxygen Flow Rate FIO2% 03/06/23 10:34 03/06/23 10:34 03/06/23 11:00 Temperature Pulse Rate 118 H Respiratory Rate 20 Blood Pressure 125/58 122/69 O2 Sat by Pulse Oximetry 98 Oxygen Delivery Method Oxygen Flow Rate FIO2% 03/06/23 11:00 03/06/23 12:00 03/06/23 12:01 Temperature 99 F Pulse Rate 120 H 120 H 120 H Respiratory Rate 21 32 H 30 H Blood Pressure O2 Sat by Pulse Oximetry 98 98 98 Oxygen Delivery Method Oxygen Flow Rate FIO2% 03/06/23 12:01 03/06/23 12:35 03/06/23 13:00 Temperature Pulse Rate Respiratory Rate 18 Blood Pressure 152/59 150/72 O2 Sat by Pulse Oximetry Oxygen Delivery Method Oxygen Flow Rate FIO2% 03/06/23 13:00 03/06/23 14:08 03/06/23 14:00 Temperature Pulse Rate 111 H 112 H Respiratory Rate 17 18 Blood Pressure 108/53 108/53 O2 Sat by Pulse Oximetry 100 96 Oxygen Delivery Method Oxygen Flow Rate FIO2% 03/06/23 14:00 03/06/23 13:05 03/06/23 15:00 Temperature Pulse Rate 140 H Respiratory Rate 18 18 Blood Pressure 105/51 O2 Sat by Pulse Oximetry 98 Oxygen Delivery Method Oxygen Flow Rate FIO2% 03/06/23 15:00 03/06/23 16:00 03/06/23 16:00 Temperature 97.7 F Pulse Rate 97 H 114 H Respiratory Rate 20 20 Blood Pressure 110/62 O2 Sat by Pulse Oximetry 97 96 Oxygen Delivery Method Oxygen Flow Rate FIO2% 03/06/23 17:00 03/06/23 17:01 03/06/23 17:01 Temperature Pulse Rate 136 H 132 H Respiratory Rate 24 18 Blood Pressure 148/75 O2 Sat by Pulse Oximetry 98 98 Oxygen Delivery Method Oxygen Flow Rate FIO2% 03/06/23 18:00 03/06/23 18:00 03/06/23 18:04 Temperature Pulse Rate 144 H Respiratory Rate 24 Blood Pressure 95/54 140/91 O2 Sat by Pulse Oximetry 99 Oxygen Delivery Method Oxygen Flow Rate FIO2% 03/06/23 18:04 03/06/23 19:00 03/06/23 19:00 Temperature Pulse Rate 145 H 132 H Respiratory Rate 20 20 Blood Pressure 124/68 O2 Sat by Pulse Oximetry 99 98 Oxygen Delivery Method Oxygen Flow Rate FIO2% 03/06/23 19:00 03/06/23 20:00 03/06/23 20:00 Temperature 97.7 F Pulse Rate 142 H Respiratory Rate 22 Blood Pressure 122/76 O2 Sat by Pulse Oximetry 98 Oxygen Delivery Method Room Air Oxygen Flow Rate FIO2% 03/06/23 20:09 03/06/23 20:09 03/06/23 21:00 Temperature Pulse Rate 135 H Respiratory Rate Blood Pressure 118/71 O2 Sat by Pulse Oximetry 99 Oxygen Delivery Method Room Air Oxygen Flow Rate FIO2% 03/06/23 21:00 03/06/23 22:00 03/06/23 22:00 Temperature Pulse Rate 124 H 137 H Respiratory Rate 20 17 Blood Pressure 119/59 O2 Sat by Pulse Oximetry 97 98 Oxygen Delivery Method Oxygen Flow Rate FIO2% 03/06/23 23:00 03/06/23 23:00 03/07/23 00:00 Temperature 98.2 F Pulse Rate 123 H Respiratory Rate 18 Blood Pressure 122/71 118/73 O2 Sat by Pulse Oximetry 98 Oxygen Delivery Method Oxygen Flow Rate FIO2% 03/07/23 00:00 03/06/23 20:06 03/06/23 20:36 Temperature Pulse Rate 144 H Respiratory Rate 28 H 21 18 Blood Pressure O2 Sat by Pulse Oximetry 94 L Oxygen Delivery Method Oxygen Flow Rate FIO2% 03/07/23 00:30 03/07/23 00:56 03/07/23 01:00 Temperature Pulse Rate Respiratory Rate 18 17 Blood Pressure 119/68 O2 Sat by Pulse Oximetry Oxygen Delivery Method Oxygen Flow Rate FIO2% 03/07/23 01:00 03/07/23 02:00 03/07/23 02:00 Temperature Pulse Rate 131 H 135 H Respiratory Rate 17 18 Blood Pressure 127/73 O2 Sat by Pulse Oximetry 99 99 Oxygen Delivery Method Oxygen Flow Rate FIO2% 03/07/23 03:00 03/07/23 03:00 03/07/23 04:00 Temperature 98.1 F Pulse Rate 133 H Respiratory Rate 17 Blood Pressure 128/59 145/54 O2 Sat by Pulse Oximetry 98 Oxygen Delivery Method Oxygen Flow Rate FIO2% 03/07/23 04:00 03/07/23 04:36 03/07/23 05:00 Temperature Pulse Rate 123 H Respiratory Rate 23 24 Blood Pressure 139/62 O2 Sat by Pulse Oximetry 96 Oxygen Delivery Method Oxygen Flow Rate FIO2% 03/07/23 05:00 03/07/23 05:06 03/07/23 06:00 Temperature Pulse Rate 114 H Respiratory Rate 15 22 Blood Pressure 131/60 O2 Sat by Pulse Oximetry 97 Oxygen Delivery Method Oxygen Flow Rate FIO2% 03/07/23 06:00 03/07/23 07:00 03/07/23 07:02 Temperature Pulse Rate 110 H 115 H Respiratory Rate 15 21 Blood Pressure 126/69 O2 Sat by Pulse Oximetry 98 96 Oxygen Delivery Method Oxygen Flow Rate FIO2% 03/07/23 07:02 03/07/23 08:44 03/07/23 07:00 Temperature Pulse Rate 122 H Respiratory Rate 25 H 32 H Blood Pressure O2 Sat by Pulse Oximetry 94 L Oxygen Delivery Method Room Air Oxygen Flow Rate FIO2% 03/07/23 08:00 03/07/23 08:03 03/07/23 08:03 Temperature 98.8 F Pulse Rate 116 H 117 H Respiratory Rate 29 H 24 Blood Pressure 133/79 O2 Sat by Pulse Oximetry 99 98 Oxygen Delivery Method Oxygen Flow Rate FIO2% 03/07/23 08:29 03/07/23 08:29 03/07/23 09:00 Temperature Pulse Rate 113 H 116 H Respiratory Rate 21 30 H Blood Pressure 140/60 127/56 O2 Sat by Pulse Oximetry 98 98 Oxygen Delivery Method Room Air Oxygen Flow Rate FIO2% 03/07/23 09:00 03/07/23 09:00 03/07/23 09:00 Temperature Pulse Rate 70 118 H Respiratory Rate 22 Blood Pressure O2 Sat by Pulse Oximetry 100 96 Oxygen Delivery Method Room Air Oxygen Flow Rate FIO2% 03/07/23 09:01 03/07/23 09:01 03/07/23 09:06 Temperature Pulse Rate 116 H 115 H Respiratory Rate 27 H 24 Blood Pressure 133/106 O2 Sat by Pulse Oximetry 94 L 98 Oxygen Delivery Method Oxygen Flow Rate FIO2% 03/07/23 09:06 03/07/23 10:00 03/07/23 10:00 Temperature Pulse Rate 117 H Respiratory Rate 23 Blood Pressure 127/56 142/60 O2 Sat by Pulse Oximetry 98 Oxygen Delivery Method Oxygen Flow Rate FIO2% 03/07/23 09:14 03/07/23 10:00 03/07/23 11:00 Temperature Pulse Rate Respiratory Rate 16 Blood Pressure 142/60 98/79 O2 Sat by Pulse Oximetry Oxygen Delivery Method Oxygen Flow Rate FIO2% 03/07/23 11:00 03/07/23 11:36 03/07/23 11:36 Temperature Pulse Rate 120 H 137 H Respiratory Rate 24 28 H Blood Pressure 137/81 O2 Sat by Pulse Oximetry 96 97 Oxygen Delivery Method Oxygen Flow Rate FIO2% 03/07/23 12:00 03/07/23 12:00 03/07/23 12:10 Temperature Pulse Rate 134 H Respiratory Rate 20 Blood Pressure 143/61 128/65 O2 Sat by Pulse Oximetry 96 Oxygen Delivery Method Oxygen Flow Rate FIO2% 03/07/23 12:10 03/07/23 14:29 03/07/23 13:00 Temperature Pulse Rate 135 H Respiratory Rate 21 19 Blood Pressure 111/78 O2 Sat by Pulse Oximetry 97 Oxygen Delivery Method Oxygen Flow Rate FIO2% 03/07/23 13:00 03/07/23 14:00 03/07/23 14:00 Temperature Pulse Rate 119 H 124 H Respiratory Rate 26 H 32 H Blood Pressure 124/68 O2 Sat by Pulse Oximetry 94 L 97 Oxygen Delivery Method Oxygen Flow Rate FIO2% 03/07/23 14:30 Temperature Pulse Rate 100 H Respiratory Rate 18 Blood Pressure O2 Sat by Pulse Oximetry 96 Oxygen Delivery Method Oxygen Flow Rate FIO2% Labs: Laboratory Last Values WBC 13.0 X10^3/uL (3.6-10.0) H 03/07/23 04:11 RBC 2.51 X10^6/uL (3.5-5.4) L 03/07/23 04:11 Hgb 7.3 g/dL (12.0-16.0) L 03/07/23 04:11 Hct 21.4 % (36.0-47.0) L 03/07/23 04:11 MCV 85.4 fL (80.0-100.0) 03/07/23 04:11 MCH 29.2 pg (27.0-34.0) 03/07/23 04:11 MCHC 34.2 g/dL (33.0-35.0) 03/07/23 04:11 RDW 16.3 % (11.6-16.5) 03/07/23 04:11 Plt Count 164 X10^3/uL (150.0-450.0) 03/07/23 04:11 Plt Count Comment Adequate (ADEQUATE) 03/07/23 04:11 MPV 8.9 fL (7.4-11.0) 03/07/23 04:11 Neut % (Auto) 84.6 % (42.0-75.0) H 03/07/23 04:11 Lymph % (Auto) 7.0 % (21.0-51.0) L 03/07/23 04:11 [place] % (Auto) 6.1 % (0.0-13.0) 03/07/23 04:11 Eos % (Auto) 0.8 % (0.9-2.9) L 03/07/23 04:11 Baso % (Auto) 1.5 % (0.2-1.0) H 03/07/23 04:11 Neut # (Auto) 11.0 x10^3/uL (2.2-4.8) H 03/07/23 04:11 Lymph # (Auto) 0.9 X10^3/uL (1.3-2.9) L 03/07/23 04:11 [place] # (Auto) 0.8 x10^3/uL (0.3-0.8) 03/07/23 04:11 Eos # (Auto) 0.1 x10^3/uL (0.0-0.2) 03/07/23 04:11 Baso # (Auto) 0.2 X10^3/uL (0.0-0.1) H 03/07/23 04:11 Absolute Nucleated RBC 0.0 /100WBC 03/07/23 04:11 Total Counted 100 03/07/23 04:11 Neutrophils % (Manual) 89 % (39-76) H 03/07/23 04:11 Band Neutrophils % 3 % (0-10) 03/06/23 04:04 Lymphocytes % (Manual) 5 % (13-43) L 03/07/23 04:11 Monocytes % (Manual) 5 % (4-9) 03/07/23 04:11 Eosinophils % (Manual) 1 % (0-6) 03/07/23 04:11 Plt Morphology Comment Normal (NORMAL) 03/07/23 04:11 RBC Morphology Normal (NORMAL) 03/07/23 04:11 PT 17.4 SECONDS (11.8-14.3) 03/03/23 18:51 INR Target Range - 03/03/23 18:51 INR 1.48 (0.8-1.3) H 03/03/23 18:51 APTT 55.0 SECONDS (22.9-36.5) H 03/05/23 07:55 PTT Comment - 03/05/23 07:55 Sodium 140 mmol/L (136-145) 03/07/23 04:11 Corrected Sodium 141 mmol/L (136-145) 03/07/23 04:11 Potassium 4.0 mmol/L (3.5-5.1) 03/07/23 04:11 Chloride 109 mmol/L (98-107) H 03/07/23 04:11 Carbon Dioxide 21.6 mmol/L (21-32) 03/07/23 04:11 BUN 13 mg/dL (7-18) 03/07/23 04:11 Creatinine 0.83 mg/dL (0.55-1.02) 03/07/23 04:11 Est GFR (MDRD) Af Amer > 60 (>60) 03/07/23 04:11 Est GFR (MDRD) Non-Af > 60 (>60) 03/07/23 04:11 Glucose 150 mg/dL (65-99) H 03/07/23 04:11 POC Glucose (mg/dL) 146 mg/dL (65-99) H 03/07/23 11:34 Calcium 7.6 mg/dL (8.5-10.1) L 03/07/23 04:11 Corrected Calcium 8.9 mg/dL (8.5-10.1) 03/06/23 04:04 Total Bilirubin 0.40 mg/dL (0.2-1.0) 03/06/23 04:04 AST 138 Units/L (15-37) H 03/06/23 04:04 ALT 40 Units/L (12-78) 03/06/23 04:04 Alkaline Phosphatase 47 Units/L (46-116) 03/06/23 04:04 Creatine Kinase 5645 Units/L (26-192) H 03/06/23 14:20 Troponin I High Sens 106.0 ng/L (4.0-60.0) H* 03/06/23 14:20 B-Natriuretic Peptide 249 pg/mL (0-79) H 03/01/23 04:25 Total Protein 4.8 g/dL (6.4-8.2) L 03/06/23 04:04 Albumin 2.3 g/dL (3.4-5.0) L 03/06/23 04:04 Globulin 2.5 g/dL (2.5-4.5) 03/06/23 04:04 Albumin/Globulin Ratio 0.9 Ratio (1.1-2.1) L 03/06/23 04:04 Resp Viral Panel (PCR) See scanned report 03/01/23 10:45 Blood Type A POSITIVE 03/03/23 11:43 Antibody Screen Negative 03/02/23 12:33 Crossmatch See Detail 03/02/23 12:33 Tx React Prelim Eval No evidence of htr 03/03/23 11:43 Tx React Symptoms Drop in bp =30mm 03/03/23 11:43 Reaction Path Interpret No evidence of htr 03/03/23 11:43 Reaction Pathol Consult Jaydon maldonado md 03/03/23 11:43 Blood Bank Comment Performed by Angelika 03/03/23 11:43 Reason For Visit: CRITICAL ISCHEMIA RIGHT LEG Discharge Date Discharge Date: 03/07/23 Discharge Diagnosis All Active Problems (Updated 03/07/23 @ 16:10 by Blake Hutchins) Atherosclerosis of [place] arteries of extremities with rest pain, left leg (Acute) Compartment syndrome of right lower extremity (Acute) New onset atrial fibrillation (Acute) Atherosclerosis of [place] arteries of extremities with rest pain, right leg (Acute) Essential (primary) hypertension (Acute) Diabetes (Acute) Plan of Treatment: Transfer to [facility].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 Discharge Medications Discharge Medications: metronidazole [From Flagyl] Allergy (Verified 02/14/23 20:34) Penicillins Allergy (Verified 02/14/23 20:34) strawberry Adverse Reaction (Verified 02/14/23 20:34) CONTINUE taking the following medications atorvastatin 10 mg tablet 1 tab PO QDAY 02/28/23 [History] atorvastatin 20 mg tablet 1 tab PO QDAY 02/28/23 [History] ondansetron 8 mg disintegrating tablet 1 tab PO Q6HR 02/28/23 [History] Checo Phelan Discharge Disposition Assessment: see hospital course above Discharge Plan Discharge Plan Hospital Course: 77 year old female seen by me on the 16 of February for gangrenous changes of the left third toe with rest pain of both legs . 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 On 02/17 she underwent atherectomy and drug coated balloon angioplasty of the left superficial femoral artery complete oclusion and atherectomy and drug coated balloon angioplasty of the left popliteal artery. Rest pain was relieved of the left leg and she was discharged home with plan for elective intervention of the right leg rest pain . CT angiogram showed near complete occlusion of the right distal superficial femoral artery . She was taken to the OR on 02/27 and arteriogram confirmed the short segment near complete occlusion of the right superficial femoral artery at the adductor canal and evidence of probable thrombosis of the right tibial - peroneal trunk and the right posterior tibial artery which had not been noted on the CT angiogram performed the previous week. She underwent atherectomy of the right SFA, tibial peroneal trunk and the posterior tibial artery .The husam of the Angiojet atherectomy device could not be advanced beyond the proximal posterior tibial artery . Drug coated balloon angioplasty was performed of the right superficial artery after the atherectomy . Arteriogram showed a small area of extravasation of the proximal right posterior tibial artery and still with small amount of thrombus in the right tibial -peroneal trunk and right posterior tibial artery. EKOS thrombolytic catheter placed all the way down into the right posterior tibial artery and directed thrombolysis carried out for 4 hours and the patient returned to the OR where the clot appeared resolved but there was still a small area of extravasation of contrast in the proximal posterior tibial artery. Attempt was mad to canalize the right peroneal artery but we developed a dissection and stopped. Prolonged balloon angioplasty performed of the proximal right posterior tibial artety . Arterigram showed flow all the way to the right ankle and retrograde filling of the right peroneal artery. Planned to observe this overnight and bring back the next day. On 02/28/2023 arteriogram still showed evidence of small area of extravasation in the proximal right posterior tibial arterty. Intravascular ultrasound showed the area of concern but the artery appeared to be intact .This area of the right posterior tibial artery had placement of a covered stent, balloon dilated to 4mm. Arteriogram showed good flow through the stent all the way around the ankle with retrograde filling of the right peroneal artery.She did well and had a warm foot with a biphasic posterior tibial doppler signal on February 28. Late in the evening of February 28 she went into atrial fibrillation with rapid ventricular rate. She was seen in consultation by Cardiology the morning of March 01 who initially treated her with IV cardiazem and transitioned her to to PO cardizem. At that time she was doing well. The heparin drip was stopped as the patient was placed on BID Eliquis per Cardiology . Later that evening she developed loss of doppler signal of the right foot .She had been on Eliquis and was converted back to a Heparin drip at this point. First case the next morning on 02 of March she was taken back to the OR.Arteriogram showed complete thrombosis of the right SFA, right popliteal artery, right tibial peroneal trunk and non occlusion thrombus of the right posterior tibial artery . She underwent Angiojet thombectomy of all of these vessels and balloon angioplasty of all of these vessels . Arteriogram showed flow into the right foot and around the ankle and the stent in the right posterior tibial artery was open . We placed EKOS thrombolytic catheter and planned overnight thrombolysis. Later on the night of March 02 she she developed acute pain of the right calf consistent with compartment syndrome was taken emergently to the operating room where she underwent 4 compartment fasciotomy . She was maintained on TPA and heparin and had bleeding from the fasciotomy sites . She required a total of 5 units of blood transfused. The TPA was stopped after 48 hours and she has had no further bleeding since then. She remains in atrial fibrillation and has had some episodes of tachycardia which has required IV labetalol in addition to the PO Cardizem she is on. She remained stable from a pulmonary standpoint. She has been confused due to IV pain medications and IV Ativan . The right foot has mottling and is very cool. She cannot move the toes on right foot. I do not think the right foot can be salvaged and even if it were I do not think the right lower leg will be functional .Family has requested transfer to [facility]. I have spoken with Dr. Rajani brooks , intensive care physician who has accepted her in transfer. I will also speak with the vascular surgeon sawmill production worker. Patient Disposition: 01 HOME, SELF-CARE Condition: Stable Health Concerns: Post Hospitalization: new medications and changes needed to prevent readmission or further decline. Pt educated and given instructions on all concerns. Care Plan Goals: Problem: Cardiac Complications Goal: Early Recognition of cardiac complications for prompt intervention Instructions: Follow provided instructions. Follow up with primary physician as directed. Contact primary care physician or report to the closest Emergency Room if condition worsens. 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 Assessment: see hospital course above Prescriptions: Continued lisinopril 10 mg tablet 1 tab PO QDAY levothyroxine 112 mcg tablet 1 tab PO QDAY insulin aspart U-100 100 unit/mL (3 mL) insulin pen 1 ea SUBCUT PRN PRN Label Comments: [NO ORIGINAL SIG] Levemir FlexPen 100 unit/mL (3 mL) insulin pen 1 ea SUBCUT PRN PRN Label Comments: [NO ORIGINAL SIG] Xarelto 2.5 mg tablet 2.5 mg PO BID Qty: 180 4RF Xarelto 2.5 mg Tablet 2.5 mg PO BID atorvastatin 20 mg tablet 1 tab PO QDAY atorvastatin 10 mg tablet 1 tab PO QDAY ondansetron 8 mg tablet,disintegrating 1 tab PO Q6HR Follow ups/Referrals Follow ups/Referrals: Samy Mcmanus [STAFF PHYSICIAN] - (Referral sent on 03/01/23) Janis Ty [Primary Care Provider] - (Follow up as needed) Blake Hutchins [STAFF PHYSICIAN] - 1 WEEK Instructions Instructions: Fall Prevention in the Home, Adult, [id number], Atherosclerosis, Atrial Fibrillation, [id number]
[2023-03-07 19:26] VITALS: BP 140/61
[2023-03-12] MEDS ORDERED: ELIQUIS PO SCH (21:00)
== END 2023-03-07 19:50 | disposition short-term general hospital (02) | DRG 271 ==
LOC: SURG1 06:18 → ICU 16:40
PROVIDERS: ADMIT Surgery; ATTEND Surgery
DX: I48.91 Unspecified atrial fibrillation; I70.221 Atherosclerosis of native arteries of extremities with rest pain, right leg; I10 Essential (primary) hypertension; E78.2 Mixed hyperlipidemia; R45.1 Restlessness and agitation; E11.65 Type 2 diabetes mellitus with hyperglycemia; T79.A21A Traumatic compartment syndrome of right lower extremity, initial encounter